=== PATIENT | male | born 1975 | race Caucasian/White ===

== ENCOUNTER 2018-05-09 07:59 | Emergency (ER) | payer SELFPAY ==
[2018-05-09 08:00] VITALS: BP 163/99; PULSE 119; RESP 20; TEMP 36.7; O2SAT 97; BMI 34.3
--- NOTE | 2018-05-09 08:12 | RAD_ITS ---
STUDY: X-RAY CHEST REASON FOR EXAM: Male, 43 years old. Wheezing, cough and shortness of breath. TECHNIQUE: PA and lateral views of the chest. COMPARISON: Comparison is made with prior study dated February 14, 2010. FINDINGS: Stable minimal increased linear markings in the lingular segment of the left upper lobe suggestive of scarring. There is no demonstrated pleural abnormality. Normal size heart. Normal mediastinum and han. Normal visualized pulmonary arteries. Normal visualized aortic arch and descending thoracic aorta. There are degenerative changes of the visualized thoracic spine. Normal visualized ribs, clavicles, and shoulders. There is no demonstrated abnormality of the visualized soft tissue structures of the upper abdomen. RAD/Chest PA and Lateral IMPRESSION: Minimal increased linear markings in the lingular segment of the left upper lobe suggestive of scarring. This is unchanged. Electronically Signed: Raj Pappas MD at 8:57 EST Tel [phone], Service support ,
[2018-05-09] MEDS: predniSONE 20 MG Tablet 40 MG PO (08:17)
[2018-05-09 08:19] VITALS: PULSE 95; RESP 18
[2018-05-09] MEDS: Ipratropium/Albuterol Sulfate 3 ML AMPUL.NEB INHALATION (08:19)
--- NOTE | 2018-05-09 08:19 | ED.VISSUMM ---
- ER Visit Summary Date of Service: 05/09/18 Chief Complaint: [Cough and shortness of breath] History of Present Illness: The patient is a 43 M [presents the emergency department complaint of cough for about a week. Patient denies any fevers. Cough is mostly nonproductive. Patient is tried gmuh-rei-xowmlqd remedies without any success. Patient continues to wheeze and feel short of breath. Complains of some burning skin sensation to the left anterior chest. Complains of chest discomfort with cough. Patient is a smoker. 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 Cranial nerves II through XII grossly intact. TMs clear. Mucous membranes moist. No adenopathy. Cardiovascular-regular rate and rhythm without murmur or ectopy Lungs-good aeration bilaterally. Patient has expiratory wheezes bilaterally. Mild tachypnea. No accessory muscle use or retractions. Mild tenderness palpation over left anterior chest wall. Abdomen-normoactive bowel sounds, soft, nontender, no rebound or rigidity, no peritoneal signs. Extremities-intact ?4, normal range of motion, normal pulses, atraumatic] Test Results: [Chest x-ray showed mild scarring in the left upper lobe which seems to be chronic.] Emergency Department Course and Treatment: [Patient was given a DuoNeb aerosol and dose of prednisone in the emergency department. Patient was given a dose of doxycycline and dispensed an albuterol MDI.] Treatment Plan: [Patient will be started on doxycycline, prednisone, and albuterol. Advised to follow-up with primary care physician public works commissioner for no doc within the next 5-7 days. Patient advised to return if increasing shortness of breath or condition should worsen anyway.] Disposition: [Discharged home in stable condition] Impression: [Asthmatic bronchitis] This note was generated with [employer] dictation software. It may contain incorrect words, spelling, and punctuation that were not noted in review of the chart prior to signing ED Disposition - Plan for ED Patient: Chief Complaint: Shortness of Breath Referrals: Jerry Dill,Nelly Weiner [NON-STAFF] -
--- NOTE | 2018-05-09 09:07 | ED.DEP ---
ED Disposition - Plan for ED Patient: Chief Complaint: Shortness of Breath Instructions: ED Bronchitis Asthmatic Prescriptions: Doxycycline 100 mg PO BID #20 cap Prednisone [Deltasone] 20 mg PO BID #10 tab Referrals: Free Nelly Dill [NON-STAFF] - 5-7 Days
[2018-05-09] MEDS: Doxycycline 100 MG CAPSULE PO (09:23)
--- OUTSIDE RECORDS SUMMARY | 2018-07-11 04:12 | XMS RPT_ITS ---
:1975 Author Organization [facility] Care Team Providers Name Role Phone Cholo Dial Attending Unavailable Primay Care Physicia, No Primary Care Unavailable Primay Care Physicia, No Primary Care Unavailable Danny Willis Attending Unavailable PROBLEMS PROBLEMS DATE TYPE CONDITION / CODE ATTENDING STATUS SOURCE 05/14/2018 Unknown T14.8XXA - Other Daniellaundsiria, Active Lorenza injury of [facility] unspecified body Hospital region, initial Repository encounter / T14.8XXA(ICD-10) PROCEDURES PROCEDURES No Procedure Records FoundRESULTS RESULTS EMERGENCY DEPARTMENT Observed: 05/14/2018 Status: F Source: [place] SUMMARY 6:54 AM [facility] REPOSITORY [facility] Medical Records Department [address] [place] [address] [place] [address] Emergency Department Summary 05/14/18 0531 MR#: [id number] Acct: [id number] Name: ANASTASIA MARTINEZ Rep #: [id number] : 1975 43 From: Danny Willis MD PCP: Care Physician, No Primary Status: DEP ER - ER Visit Summary Date of Service: 05/14/18 Chief Complaint: [] Patient said yesterday he coughed really hard and injured his left ribs. He is having pain with coughing and deep breaths in his left rib area. No significant shortness of breath. Was diagnosed with an asthmatic bronchitis which is getting better. He was seen in the emergency department with a normal chest x- ray at that time. He is on doxycycline, albuterol, prednisone. History of Present Illness: The patient is a 43 M [] Physical Examination: [] Vital signs reviewed General: Well-nourished well-developed Head: Normocephalic atraumatic Eyes: Pupils equal round and reactive to light extraocular movements intact ENT: TMs clear no hemotympanum no trauma Neck: Nontender full range of motion Cardiovascular: Regular rate rhythm no murmurs normal S1-S2 Respiratory: No distress clear to auscultation bilaterally chest nontender Abdomen: Soft nontender nondistended normal bowel sounds no masses Back: Nontender no CVA tenderness Extremities: Nontender active range of motion 4 extremities no trauma Skin: Normal color no trauma Neuro alert oriented cranial nerves II through XII intact normal strength sensation reflexes Test Results: [] Emergency Department Course and Treatment: [] This time I think the patient has a partial intercostal muscle strain versus tear. Given a shot of morphine. Will be given a short course of hydrocortisone for home. I do not think he needs a repeat chest x-ray. I do not think he has a pneumothorax. Treatment Plan: [] Disposition: [] Impression: [] Left intercostal muscle injury This note was generated with [employer] dictation software. It may contain incorrect words, spelling, and punctuation that were not noted in review of the chart prior to signing ED Disposition - Plan for ED Patient: Chief Complaint: Other, Pain/Inj Referrals: Care Physician,No Primary [Primary Care Provider] - What to do if you have Problems For any increased pain, shortness of breath, bleeding, nausea or vomiting, chest pain, or any unexpected problems, contact your Primary Care Provider. Call [facility] ([phone]) or report to the closest Emergency Room. Call 911 if necessary. 05/14/18 0654 <Electronically signed by Danny Willis MD> Date Danny Willis MD Cosigner Signature (If Indicated): Date CC: No Primary Care Physician DISCHARGE INSTRUCTION Observed: 05/14/2018 Status: F Source: [place] 6:54 AM [facility] HOSPITAL REPOSITORY [facility] Medical Records Department [address] [place] [address] Discharge Instruction 05/14/18 0532 MR#: [id number] Acct: [id number] Name: ANASTASIA MARTINEZ Marianela Rep #: [id number] : 1975 43 From: Danny Willis MD PCP: Care Physician, No Primary Status: DEP ER ED Disposition - Plan for ED Patient: Disposition: Home or Assisted Living Chief Complaint: Other, Pain/Inj Instructions: ED Strain Chest Wall Prescriptions: Hydrocodone Bitart/Apap 5-325 [[place] 5MG-325MG] 1 - 2 tab PO Q6H PRN PRN 3 Days #10 tab PRN Reason: Pain Referrals: Care Physician,No Primary [Primary Care Provider] - Nura Pritchett MD [STAFF PHYSICIAN] - What to do if you have Problems For any increased pain, shortness of breath, bleeding, nausea or vomiting, chest pain, or any unexpected problems, contact your Primary Care Provider. Call [facility] ([phone]) or report to the closest Emergency Room. Call 911 if necessary. 05/14/18 0654 <Electronically signed by Danny Willis MD> Date Danny Willis MD Cosigner Signature (If Indicated): Date CC: No Primary Care Physician EMERGENCY DEPARTMENT Observed: 05/10/2018 Status: F Source: [place] SUMMARY 4:12 PM [facility] REPOSITORY [facility] Medical Records Department [address] [place] [address] Emergency Department Summary 05/09/18 0819 MR#: [id number] Acct: [id number] Name: ANASTASIA MARTINEZ Rep #: [id number] : 1975 43 From: Cholo Dial PCP: Care Physician, No Primary Status: DEP ER - ER Visit Summary Date of Service: 05/09/18 Chief Complaint: [Cough and shortness of breath] History of Present Illness: The patient is a 43 M [presents the emergency department complaint of cough for about a week. Patient denies any fevers. Cough is mostly nonproductive. Patient is tried ydcz-qcd-ohhszxg remedies without any success. Patient continues to wheeze and feel short of breath. Complains of some burning skin sensation to the left anterior chest. Complains of chest discomfort with cough. Patient is a smoker. 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 Cranial nerves II through XII grossly intact. TMs clear. Mucous membranes moist. No adenopathy. Cardiovascular-regular rate and rhythm without murmur or ectopy Lungs-good aeration bilaterally. Patient has expiratory wheezes bilaterally. Mild tachypnea. No accessory muscle use or retractions. Mild tenderness palpation over left anterior chest wall. Abdomen-normoactive bowel sounds, soft, nontender, no rebound or rigidity, no peritoneal signs. Extremities-intact 4, normal range of motion, normal pulses, atraumatic] Test Results: [Chest x-ray showed mild scarring in the left upper lobe which seems to be chronic.] Emergency Department Course and Treatment: [Patient was given a DuoNeb aerosol and dose of prednisone in the emergency department. Patient was given a dose of doxycycline and dispensed an albuterol MDI.] Treatment Plan: [Patient will be started on doxycycline, prednisone, and albuterol. Advised to follow-up with primary care physician field ironworker for no doc within the next 5-7 days. Patient advised to return if increasing shortness of breath or condition should worsen anyway.] Disposition: [Discharged home in stable condition] Impression: [Asthmatic bronchitis] This note was generated with [employer] dictation software. It may contain incorrect words, spelling, and punctuation that were not noted in review of the chart prior to signing ED Disposition - Plan for ED Patient: Chief Complaint: Shortness of Breath Referrals: Jerry Dill,Nelly Weiner [NON-STAFF] - What to do if you have Problems For any increased pain, shortness of breath, bleeding, nausea or vomiting, chest pain, or any unexpected problems, contact your Primary Care Provider. Call [facility] ([phone]) or report to the closest Emergency Room. Call 911 if necessary. 05/10/18 1612 <Electronically signed by Cholo Dial DO> Date Cholo Dial DO Cosigner Signature (If Indicated): Date CC: No Primary Care Physician DISCHARGE INSTRUCTION Observed: 05/09/2018 Status: F Source: [place] 9:09 AM [facility] REPOSIT[facility] Medical Records Department [address] [facility] [place] [address] Discharge Instruction 05/09/18906 MR#: [id number] Acct: [id number] Name: ANASTASIA MARTINEZ Rep #: [id number] : 1975 43 From: Cholo Dial DO PCP: Care Physician, No Primary Status: REG ER ED Disposition - Plan for ED Patient: Chief Complaint: Shortness of Breath Instructions: ED Bronchitis Asthmatic Prescriptions: Doxycycline 100 mg PO BID #20 cap Prednisone [Deltasone] 20 mg PO BID #10 tab Referrals: Nelly Cuello [NON-STAFF] - 5-7 Days What to do if you have Problems For any increased pain, shortness of breath, bleeding, nausea or vomiting, chest pain, or any unexpected problems, contact your Primary Care Provider. Call [facility] ([phone]) or report to the closest Emergency Room. Call 911 if necessary. 05/09/18 0909 <Electronically signed by Cholo Dial DO> Date Cholo Dial DO Cosigner Signature (If Indicated): Date CC: No Primary Care Physician CHEST PA AND LATERAL Observed: 05/09/2018 Status: F Source: [place] 8:13 AM [facility] REPOSIT[facility] Imaging Services [address] [place] [address] Chest PA and Lateral MR#: [id number] Acct: [id number] Name: ANASTASIA MARTINEZ Rep #: [id number] : 1975 M 43 From: Raj Pappas MD PCP: Care Physician, No Primary Status: REG ER Study: Chest PA and Lateral Date of Exam: 05/09/18 Exam# [id number] Ordering Dr: Cholo Dial DO STUDY: X-RAY CHEST REASON FOR EXAM: Male, 43 years old. Wheezing, cough and shortness of breath. TECHNIQUE: PA and lateral views of the chest. COMPARISON: Comparison is made with prior study dated February 14, 2010. FINDINGS: Stable minimal increased linear markings in the lingular segment of the left upper lobe suggestive of scarring. There is no demonstrated pleural abnormality. Normal size heart. Normal mediastinum and han. Normal visualized pulmonary arteries. Normal visualized aortic arch and descending thoracic aorta. There are degenerative changes of the visualized thoracic spine. Normal visualized ribs, clavicles, and shoulders. There is no demonstrated abnormality of the visualized soft tissue structures of the upper abdomen. RAD/Chest PA and Lateral IMPRESSION: Minimal increased linear markings in the lingular segment of the left upper lobe suggestive of scarring. This is unchanged. Electronically Signed: Raj Pappas MD at 8:57 EST Tel [phone], Service support , CC: No Primary Care Physician; Cholo Dial DO Telecommunications Specialist: Signed ALLERGIES ALLERGIES DATE TYPE / CODE NAME / CODE REACTION SEVERITY SOURCE 10/23/2015 Drug No Known Unknown [facility] Allergy/4160 Allergies/F00 Hospital 10232(SNOMED [id number](RXNOR Repository CT) M) ENCOUNTERS ENCOUNTERS ADMIT/DISCHARGE ACCOUNT ADMITTING ENCOUNTER LOCATION SOURCE NUMBER CLASS 05/14/2018/ [id number] Emergency [address] ing:ED Repository 05/09/2018/ [id number] Emergency [address] ing:ED Repository PAYERS PAYERS ENCOUNTER GUARANTOR PAYER SUBSCRIBER SOURCE 05/14/2018 ANASTASIA Bear Primary NOT GIVENUNK Lorenza [id number] [place] Insurance:SELF PAY [address] Number: Effective Repository [id number]: (330) Date:2018-05-14 [phone] () 05/09/2018 ANASTASIA Marianela Primary NOT GIVENUNK Lorenza [id number] [place] Insurance:SELF PAY [address] Number: Effective Repository [id number]: [phone] Date:2018-05-09 [phone] ()
== END 2018-05-09 09:24 | disposition home or self-care (01) ==
LOC: ED 08:41
PROVIDERS: Emergency Provider Emergency Medicine
DX: J45.909 Unspecified asthma, uncomplicated (principal); I10 Essential (primary) hypertension; Z72.0 Tobacco use
CPT/HCPCS: 71046; 94640; 99283

== ENCOUNTER 2018-05-14 04:59 | Emergency (ER) | payer SELFPAY ==
[2018-05-14 04:59] VITALS: BP 154/106; PULSE 85; RESP 16; TEMP 36.5; O2SAT 96; BMI 35.2
--- NOTE | 2018-05-14 05:32 | ED.DCSUM_ITS ---
- ER Visit Summary Date of Service: 05/14/18 Chief Complaint: [] Patient said yesterday he coughed really hard and injured his left ribs. He is having pain with coughing and deep breaths in his left rib area. No significant shortness of breath. Was diagnosed with an asthmatic bronchitis which is getting better. He was seen in the emergency department with a normal chest x-ray at that time. He is on doxycycline, albuterol, prednisone. History of Present Illness: The patient is a 43 M [] Physical Examination: [] Vital signs reviewed General: Well-nourished well-developed Head: Normocephalic atraumatic Eyes: Pupils equal round and reactive to light extraocular movements intact ENT: TMs clear no hemotympanum no trauma Neck: Nontender full range of motion Cardiovascular: Regular rate rhythm no murmurs normal S1-S2 Respiratory: No distress clear to auscultation bilaterally chest nontender Abdomen: Soft nontender nondistended normal bowel sounds no masses Back: Nontender no CVA tenderness Extremities: Nontender active range of motion ?4 extremities no trauma Skin: Normal color no trauma Neuro alert oriented cranial nerves II through XII intact normal strength sensation reflexes Test Results: [] Emergency Department Course and Treatment: [] This time I think the patient has a partial intercostal muscle strain versus tear. Given a shot of morphine. Will be given a short course of hydrocortisone for home. I do not think he needs a repeat chest x-ray. I do not think he has a pneumothorax. Treatment Plan: [] Disposition: [] Impression: [] Left intercostal muscle injury This note was generated with [employer] dictation software. It may contain incorrect words, spelling, and punctuation that were not noted in review of the chart pr ior to signing ED Disposition - Plan for ED Patient: Chief Complaint: Other, Pain/Inj Referrals: Care Physician,No Primary [Primary Care Provider] -
--- NOTE | 2018-05-14 05:33 | DCINST.ED_ITS ---
ED Disposition - Plan for ED Patient: Disposition: Home or Assisted Living Chief Complaint: Other, Pain/Inj Instructions: ED Strain Chest Wall Prescriptions: Hydrocodone Bitart/Apap 5-325 [[place] 5MG-325MG] 1 - 2 tab PO Q6H PRN PRN 3 Days #10 tab PRN Reason: Pain Referrals: Care Physician,No Primary [Primary Care Provider] - Nura Pritchett MD [STAFF PHYSICIAN] -
[2018-05-14] MEDS: Morphine 4 MG/ML Syringe IM (05:38)
[2018-05-14 05:54] VITALS: BP 152/97; PULSE 76; RESP 15
== END 2018-05-14 05:55 | disposition home or self-care (01) ==
PROVIDERS: Emergency Provider Emergency Medicine
DX: S29.091A Other injury of muscle and tendon of front wall of thorax, initial encounter (principal); X50.3XXA Overexertion from repetitive movements, initial encounter; Y93.9 Activity, unspecified; Y92.89 Other specified places as the place of occurrence of the external cause; Y99.9 Unspecified external cause status; Z72.0 Tobacco use; E66.9 Obesity, unspecified
CPT/HCPCS: 96372; 99282

== ENCOUNTER 2018-07-16 10:10 | Observation (INO) | payer SELFPAY ==
[2018-07-16] VITALS (8 sets, daily range): BP systolic 123–151; BP diastolic 81–90; PULSE 65–105; RESP 14–18; TEMP 37.2–37.6; O2SAT 95–99; BMI 29.8; BMI 31.6
--- NOTE | 2018-07-16 10:30 | ED.DCSUM_ITS ---
- ER Visit Summary Date of Service: 07/16/18 Chief Complaint: Nausea, vomiting, and abdominal pain History of Present Illness: The patient is a 43 M who presents with nausea, vomiting, and abdominal pain that is been constant for the past 5 days. Patient states he has been unable to keep anything down for the past 5 days. Patient states he is beyond dehydrated. Patient states he is vomited some stomach contents but his intermittent streaks of blood occasionally. Patient denies any melena or hematochezia. Patient states the pain is over the left upper quadrant. Patient denies any radiation of the pain. Patient describes the pain is cramping. Patient denies any urinary complaints. Patient states he has a history of spastic colitis. Patient states that he he had the stomach flu recently which triggered his spastic colitis. Physical Examination: Vital signs are stable except for slight tachycardia of 105. Patient is afebrile. Patient is in no acute distress. Oral mucosa is pink and moist. Neck is supple. Trachea is midline. There is no JVD noted. Heart was regular rate and rhythm. Lungs are clear and equal bilaterally. Abdomen is soft. Bowel sounds are normal. There is some left upper quadrant tenderness. There is no rebound or guarding noted. Cranial nerves II through XII are intact. There are no focal motor or sensory deficits noted. Test Results: EKG showed normal sinus rhythm with a rate of 75. There are no acute ST or T wave changes. QTc was prolonged at 544 other than the prolonged QTC there are no acute changes compared to previous EKG dated 07/05/2015. CBC showed hemoglobin of 18.2. Basic metabolic profile showed a sodium of 122, potassium 2.2, and chloride of 71. Emergency Department Course and Treatment: Patient was given IV fluids and Zofran here. Patient was given a dose of IV potassium here as well as oral potassium. Patient was feeling better on reevaluation. Case was discussed with Dr. Cardenas. He will admit the patient for observation to telemetry. Patient understood and was agreeable with the plan. All questions were answered. Disposition: Admit for observation Impression: 1. Hypokalemia 2. Dehydration 3. Hyponatremia This note was generated with [employer] software. It may contain incorrect words, spelling, and punctuation that were not noted in review of the chart prior to signing ED Disposition - Plan for ED Patient: Disposition: Acute [facility] Diagnosis: Dehydration, Hypokalemia, Hyponatremia Referrals: Care Physician,No Primary [Primary Care Provider] -
[2018-07-16] MEDS: Ondansetron 4 MG/2 ML Vial IV ×2 (10:51→15:41)
[2018-07-16] MEDS: 0.9% Normal Saline 1,000 ML 1000 ML IV (10:51)
[2018-07-16 11:02] LABS: Absolute Lymphocyte Count 1.92 X10^3/ul (0.83-4.51); Absolute Neutrophil Count 11.5 X10^3/uL (2.0-7.7); Basophil# 0.02 X10^3/uL; Basophil% 0.1 % (0-1); Eosinophil# 0.02 X10^3/uL; Eosinophils% 0.1 % (0-5); Hematocrit 51.5 % (40-54); Lymphocyte # 1.92 X10^3/ul (4.0); Lymphocyte % 12.3 % (19-41); Mean Corp Hgb Conc 35.3 g/gl (32-36); Mean Corpuscular Volume 87.6 fL (80-94); Mean Platelet Vol. 9.5 fl (6.2-12.0); Monocyte# 2.01 X10^3/uL; Monocyte% 12.9 % (0-10); Neutrophil # 11.54 X10^3/uL (2.7-7.7); Neutrophil % 74.3 % (47-70); Platelet Count 242 K/mm3 (150-450); RBC Distribution Width SD 38.2 fl (35.1-43.9); Red Blood Count 5.88 M/mm3 (4.6-6.2); White Blood Count 15.6 K/mm3 (4.4-11.0)
[2018-07-16 11:04] LABS: Differential Indicated SCAN CRITERIA MET; Hemoglobin 18.2 g/dl (13.0-16.5); POSITIVE COUNT NO; POSITIVE DIFFERENTIAL YES; POSITIVE MORPHOLOGY NO
[2018-07-16 11:27] LABS: AST(SGOT) 21 U/L (15-37); Alanine Aminotransfer ALT/SGPT 27 U/L (16-61); Albumin, Serum 4.1 g/dL (3.2-5.0); Alkaline Phosphatase 96 U/L (45-117); Anion Gap 13 (5-15); BUN 35 mg/dL (7-18); BUN/Creat Ratio 27.3 RATIO (10-20); Calcium,Total 8.9 mg/dL (8.5-10.1); Chloride 71 mmol/L (98-107); Creatinine, Serum 1.28 mg/dL (0.70-1.30); EST Glomerular Filtration Rate 65 mL/min (>60); Est Glom Filt Rate - Afr Amer 79 mL/min (>60); Estimated Creatinine Clearance 82.52 ml/min; Glucose 208 mg/dL (74-106); Lipase 140 U/L (73-393); Potassium 2.2 mmol/L (3.5-5.1); Protein, Total 8.1 g/dL (6.4-8.2); Sodium Level 122 mmol/L (136-145)
--- NOTE | 2018-07-16 11:35 | ED.RN ---
hgb 18.2 pot 2.2 and chloride [address] mcnally aware
[2018-07-16] MEDS: Potassium Chloride 10mEq/100mL 10 MEQ/100 ML IV.SOLN. 100 MEQ IV BOLUS ×2 (11:41→20:24)
--- NOTE | 2018-07-16 12:40 | EKG12_ITS ---
Test Reason : CP Blood Pressure : / mmHG Vent. Rate : 075 BPM Atrial Rate : 075 BPM P-R Int : 140 ms QRS Dur : 112 ms QT Int : 488 ms P-R-T Axes : 068 028 065 degrees QTc Int : 544 ms Normal sinus rhythm Prolonged QT Abnormal ECG Confirmed by ISABELLA BARRIOS, SHARIF ([id number]), video news editor NANCIE MUNOZ ([id number]) on 07/17/2018 1:35:23 PM Referred By: Gold Cardenas Confirmed By:SHARIF MASON MD
--- NOTE | 2018-07-16 13:47 | PCM.HP.STD ---
Problem List (1) Intractable nausea and vomiting Status: Acute Qualifiers: Vomiting type: unspecified Qualified Code(s): R11.2 - Nausea with vomiting, unspecified (2) Hypokalemia Status: Acute (3) Hyponatremia Status: Acute History of Present Illness Date of Admission: 07/16/18 Chief Complaint: nausea/vomiting The patient is a 43 year old M presents with a 5-6-day history of intractable nausea and vomiting. Patient states that he is only been able to just have some drops of water into his mouth just to keep his mouth wet but anything he does drink he soon regurgitates. Patient has had similar events in the past and has been hospitalized here for such but he states that this episode is not quite severe as those prior episodes. Patient states that it is not severe because he still making urine right now where as previously, he was not making any urine. So he presented to the emergency room and had a sodium 122 and a potassium of 2.2. He received Zofran, 40 medical events of K Dur, 10 mg of potassium chloride IV and your of IV fluids. Patient states that he is having some abdominal pain that is epigastric to left-sided. [] Past Medical History Past Medical History (Chronic Problems): Chronic Problems Tobacco use disorder (Chronic) Irritable colon (Chronic) History of sciatica (Chronic) History of back pain (Chronic) Benign essential HTN (Chronic) Allergies No Known Allergies Allergy (Verified 07/16/18 10:10) Home Medications: Ambulatory Orders Medication Instructions Recorded NK 07/16/18 Surgical History: appendectomy, tonsillectomy Psychiatric History: No pertinent psych hx Smoking Status: Heavy Smoker (>10/day) Tobacco Use: Cigarettes Alcohol: None Drugs: None - *Family History Maternal Family History: Family History (Last Updated 07/16/18 @ 13:50 by Gold Cardenas DO) Aunt Crohns disease History Items: No pertinent history Paternal Family History: Family History (Last Updated 07/16/18 @ 13:50 by Gold Cardenas DO) Aunt Crohns disease History Items: No pertinent history Review of Systems Constitutional: Reports: Chills, Malaise, Weakness. Denies: Fever Eyes: Reports: Blurred vision. Denies: Double vision HEENT: Denies: Head Aches, Sinus Congestion, Sinus Drainage Cardiovascular: Denies: Chest Pain, Palpitations Respiratory: Denies: Cough, Shortness of breath at rest, Sputum production Gastrointestinal: Reports: Abdominal Pain, Nausea, Vomiting. Denies: Diarrhea Genitourinary: Reports: - - Good urinary output. Denies: Dysuria Musculoskeletal: Reports: Arm Pain. Denies: Joint Tenderness Skin: Denies: Dryness, Jaundice Neurological: Reports: Balance problems, Blurred vision, Change in Speech. Denies: Double vision Psychiatric: Denies: Anxiety, Depression Comment: A 10 point review of systems were negative except as mentioned in the history of present illness and the other review of systems. VTE Information - Inpt Only VTE Present on Admission: No VTE Mechan Device Prophylaxis: None VTE Pharm Prophylaxis ordered?: Yes Patient Problems: Active and Suspected Problems Dehydration (Acute) Hypokalemia (Acute) Hyponatremia (Acute) Intractable nausea and vomiting (Acute) - Physical Exam General: Alert, Cooperative, - - Uncomfortable, appears older than stated age. HEENT: Atraumatic, Normocephalic, - - No scleral icterus Oral: Moist Mucosa, No Gingival or Mucosal Lesions/ Ulcerations Neck: No Nodes, Thyroid Normal Size and Texture Lungs: Clear to auscultation, Normal air movement, No rhonchi, No wheeze Cardiovascular: Regular rate, Regular Rhythm, Normal S1, Normal S2 Abdomen: Bowel Sounds Present, Soft, Non-Distended, - - Slight epigastric tenderness Extremities: No edema, No Calf Tenderness Skin: No rashes, No breakdown, - - Acne pockmarks on his face Musculoskeletal: No Tenderness to Palpation of Joints or Extremities, No Muscle Wasting Psych/Mental Status: Normal Affect, Anxious Vital Signs Temp Pulse Resp BP Pulse Ox 37.6 C H 74 18 136/83 H 96 07/16/18 10:11 07/16/18 13:09 07/16/18 13:09 07/16/18 13:09 07/16/18 10:11 Oxygen Delivery Method Room Air Weight: 99.79 kg Body Mass Index (BMI) 29.8 Laboratory Tests Past 24 Hrs 07/16/18 07/16/18 10:50 10:50 WBC 15.6 H RBC 5.88 Hgb 18.2 H* Hct 51.5 MCV 87.6 MCH 31.0 MCHC 35.3 RDW 12.0 RDW Differential 38.2 Plt Count 242 MPV 9.5 Immature Gran % (Auto) 0.300 Neut % (Auto) 74.3 H Lymph % (Auto) 12.3 L [place] % (Auto) 12.9 H Eos % (Auto) 0.1 Baso % (Auto) 0.1 Absolute Neuts (auto) 11.5 H Absolute Lymphs (auto) 1.92 Total Counted Not Reportable Differential Comment COMMENT Diff Path Review May foll Sodium 122 L Potassium 2.2 L* Chloride 71 L* Carbon Dioxide 38.0 H Anion Gap 13 BUN 35 H Creatinine 1.28 Estim Creat Clear Calc 82.52 Est GFR (MDRD) Af Amer 79 Est GFR (MDRD) Non-Af 65 BUN/Creatinine Ratio 27.3 H Glucose 208 H Calcium 8.9 Total Bilirubin 1.80 H AST 21 ALT 27 Alkaline Phosphatase 96 Total Protein 8.1 Albumin 4.1 Globulin 4.0 Albumin/Globulin Ratio 1.0 Lipase 140 Assessment/Plan All Active Problems Dehydration (Acute) Hypokalemia (Acute) Hyponatremia (Acute) Intractable nausea and vomiting (Acute) 1. Intractable nausea and vomiting Seems prolonged to be just related with gastroenteritis, but certainly could be so. Does have relative with Crohn's disease. Patient reports history of IBD and celiac sprue. The symptoms do not seem consistent with either of those diagnoses to be going on this long. He denies any marijuana use that this is associated with hyperemesis due to cannabinoids, unless he was not forthcoming in regards to smoking marijuana. Supportive management Put the patient on Protonix as well as Zofran Check a CT of the abdomen and pelvis to rule out any other acute pathology such as inflammatory bowel disease. 2. Hyponatremia Likely due to hypovolemia given the intractable nausea and vomiting No indication for hypertonic saline at this time. Patient will receive normal saline at 250 cc/h for now. Recheck BMP later on today 3. Hypokalemia Attributable to the intractable nausea and vomiting Was replaced in the emergency room, will give patient additional 30 mEq IV on the floor Check magnesium level Recheck later today 4. DVT prophylaxis with Lovenox Code Visit OBSV E&M: [id number] Initial observation care L3
--- NOTE | 2018-07-16 13:52 | HP.PCM_ITS ---
Problem List (1) Intractable nausea and vomiting Status: Acute Qualifiers: Vomiting type: unspecified Qualified Code(s): R11.2 - Nausea with vomiting, unspecified (2) Hypokalemia Status: Acute (3) Hyponatremia Status: Acute History of Present Illness Date of Admission: 07/16/18 Chief Complaint: nausea/vomiting The patient is a 43 year old M presents with a 5-6-day history of intractable nausea and vomiting. Patient states that he is only been able to just have some drops of water into his mouth just to keep his mouth wet but anything he does drink he soon regurgitates. Patient has had similar events in the past and has been hospitalized here for such but he states that this episode is not quite severe as those prior episodes. Patient states that it is not severe because he still making urine right now where as previously, he was not making any urine. So he presented to the emergency room and had a sodium 122 and a potassium of 2.2. He received Zofran, 40 medical events of K Dur, 10 mg of potassium chloride IV and your of IV fluids. Patient states that he is having some abdominal pain that is epigastric to left-sided. [] Past Medical History Past Medical History (Chronic Problems): Chronic Problems Tobacco use disorder (Chronic) Irritable colon (Chronic) History of sciatica (Chronic) History of back pain (Chronic) Benign essential HTN (Chronic) Allergies No Known Allergies Allergy (Verified 07/16/18 10:10) Home Medications: Ambulatory Orders Medication Instructions Recorded NK 07/16/18 Surgical History: appendectomy, tonsillectomy Psychiatric History: No pertinent psych hx Smoking Status: Heavy Smoker (>10/day) Tobacco Use: Cigarettes Alcohol: None Drugs: None - *Family History Maternal Family History: Family History (Last Updated 07/16/18 @ 13:50 by Gold Cardenas DO) Aunt Crohns disease History Items: No pertinent history Paternal Family History: Family History (Last Updated 07/16/18 @ 13:50 by Gold Cardenas DO) Aunt Crohns disease History Items: No pertinent history Review of Systems Constitutional: Reports: Chills, Malaise, Weakness. Denies: Fever Eyes: Reports: Blurred vision. Denies: Double vision HEENT: Denies: Head Aches, Sinus Congestion, Sinus Drainage Cardiovascular: Denies: Chest Pain, Palpitations Respiratory: Denies: Cough, Shortness of breath at rest, Sputum production Gastrointestinal: Reports: Abdominal Pain, Nausea, Vomiting. Denies: Diarrhea Genitourinary: Reports: - - Good urinary output. Denies: Dysuria Musculoskeletal: Reports: Arm Pain. Denies: Joint Tenderness Skin: Denies: Dryness, Jaundice Neurological: Reports: Balance problems, Blurred vision, Change in Speech. Denies: Double vision Psychiatric: Denies: Anxiety, Depression Comment: A 10 point review of systems were negative except as mentioned in the history of present illness and the other review of systems. VTE Information - Inpt Only VTE Present on Admission: No VTE Mechan Device Prophylaxis: None VTE Pharm Prophylaxis ordered?: Yes Patient Problems: Active and Suspected Problems Dehydration (Acute) Hypokalemia (Acute) Hyponatremia (Acute) Intractable nausea and vomiting (Acute) - Physical Exam General: Alert, Cooperative, - - Uncomfortable, appears older than stated age. HEENT: Atraumatic, Normocephalic, - - No scleral icterus Oral: Moist Mucosa, No Gingival or Mucosal Lesions/ Ulcerations Neck: No Nodes, Thyroid Normal Size and Texture Lungs: Clear to auscultation, Normal air movement, No rhonchi, No wheeze Cardiovascular: Regular rate, Regular Rhythm, Normal S1, Normal S2 Abdomen: Bowel Sounds Present, Soft, Non-Distended, - - Slight epigastric tenderness Extremities: No edema, No Calf Tenderness Skin: No rashes, No breakdown, - - Acne pockmarks on his face Musculoskeletal: No Tenderness to Palpation of Joints or Extremities, No Muscle Wasting Psych/Mental Status: Normal Affect, Anxious Vital Signs Temp Pulse Resp BP Pulse Ox 37.6 C H 74 18 136/83 H 96 07/16/18 10:11 07/16/18 13:09 07/16/18 13:09 07/16/18 13:09 07/16/18 10:11 Oxygen Delivery Method Room Air Weight: 99.79 kg Body Mass Index (BMI) 29.8 Laboratory Tests Past 24 Hrs 07/16/18 07/16/18 10:50 10:50 WBC 15.6 H RBC 5.88 Hgb 18.2 H* Hct 51.5 MCV 87.6 MCH 31.0 MCHC 35.3 RDW 12.0 RDW Differential 38.2 Plt Count 242 MPV 9.5 Immature Gran % (Auto) 0.300 Neut % (Auto) 74.3 H Lymph % (Auto) 12.3 L [place] % (Auto) 12.9 H Eos % (Auto) 0.1 Baso % (Auto) 0.1 Absolute Neuts (auto) 11.5 H Absolute Lymphs (auto) 1.92 Total Counted Not Reportable Differential Comment COMMENT Diff Path Review May foll Sodium 122 L Potassium 2.2 L* Chloride 71 L* Carbon Dioxide 38.0 H Anion Gap 13 BUN 35 H Creatinine 1.28 Estim Creat Clear Calc 82.52 Est GFR (MDRD) Af Amer 79 Est GFR (MDRD) Non-Af 65 BUN/Creatinine Ratio 27.3 H Glucose 208 H Calcium 8.9 Total Bilirubin 1.80 H AST 21 ALT 27 Alkaline Phosphatase 96 Total Protein 8.1 Albumin 4.1 Globulin 4.0 Albumin/Globulin Ratio 1.0 Lipase 140 Assessment/Plan All Active Problems Dehydration (Acute) Hypokalemia (Acute) Hyponatremia (Acute) Intractable nausea and vomiting (Acute) 1. Intractable nausea and vomiting * Seems prolonged to be just related with gastroenteritis, but certainly could be so. Does have relative with Crohn's disease. Patient reports history of IBD and celiac sprue. The symptoms do not seem consistent with either of those diagnoses to be going on this long. He denies any marijuana use that this is associated with hyperemesis due to cannabinoids, unless he was not forthcoming in regards to smoking marijuana. * Supportive management * Put the patient on Protonix as well as Zofran * Check a CT of the abdomen and pelvis to rule out any other acute pathology such as inflammatory bowel disease. 2. Hyponatremia * Likely due to hypovolemia given the intractable nausea and vomiting * No indication for hypertonic saline at this time. Patient will receive normal saline at 250 cc/h for now. * Recheck BMP later on today 3. Hypokalemia * Attributable to the intractable nausea and vomiting * Was replaced in the emergency room, will give patient additional 30 mEq IV on the floor * Check magnesium level * Recheck later today 4. DVT prophylaxis with Lovenox Code Visit OBSV E&M: [id number] Initial observation care L3
--- NOTE | 2018-07-16 15:10 | CT_ITS ---
STUDY: CT ABDOMEN AND PELVIS WITH CONTRAST REASON FOR EXAM: Male, 43 years old. Nausea, vomiting RADIATION DOSAGE (If Supplied By Facility): CTDIvol = ( 16.29 ) mGy, DLP = ( 1231.49 ) mGycm TECHNIQUE: Transaxial images were obtained from the dome of the diaphragm to the symphysis pubis without oral contrast. 80 IV/Oral Isovue 300 was administered. Sagittal and coronal images were reconstructed. Individualized dose optimization techniques were used for this CT. COMPARISON: July 05, 2015 FINDINGS: The visualized lung bases are unremarkable. The visualized portions of the heart are within normal limits. Normal liver. Normal gallbladder and extrahepatic biliary system. Normal spleen. Normal pancreas. Normal bilateral adrenal glands. Probable punctate nonobstructive stone in the right kidney. 2.2 cm cyst and adjacent 2 mm stones are noted in the left kidney. Normal visualized stomach. Normal small intestine. Normal colon. The appendix is not visualized. Normal abdominal aorta. Normal inferior vena cava. Normal retroperitoneum. Normal urinary bladder. Normal abdominal wall. Degenerative vertebral changes. Old compression of L1. Stable mild compression of T12 with depressed superior endplate. Minimal retrolisthesis at L5-S1. Posterior annular bulge at L4-5 impressing upon the thecal sac. CT/Abdomen/Pelvis WITH Contrast IMPRESSION: Nonobstructing stones in the kidneys. Left renal cyst. No bowel obstruction. Electronically Signed: Sergio Mckeon DO at 18:26 EDT Tel [phone], Service support ,
[2018-07-16] MEDS: 0.9% NaCl Peripheral Flush Adult/Peds IV ×3 (15:41→18:05)
[2018-07-16] MEDS: Morphine 2 MG/ML Syringe IV ×2 (15:41→19:51)
[2018-07-16 15:58] LABS: Magnesium 2.7 mg/dL (1.6-2.6)
[2018-07-16] MEDS: Potassium Chloride 10mEq/100mL 10 MEQ/100 ML IV.SOLN. 75 MEQ IV BOLUS (16:00)
[2018-07-16] MEDS: Enoxaparin 40 MG/0.4 ML Syringe SC (17:33)
[2018-07-16] MEDS: Potassium Chloride 10mEq/100mL 10 MEQ/100 ML IV.SOLN. 50 MEQ IV BOLUS (18:05)
[2018-07-16] MEDS: 0.9% Normal Saline 1,000 ML 150 ML IV (18:06)
[2018-07-16 18:26] LABS: Anion Gap 8 (5-15); BUN 29 mg/dL (7-18); BUN/Creat Ratio 25.9 RATIO (10-20); Calcium,Total 7.9 mg/dL (8.5-10.1); Chloride 82 mmol/L (98-107); Creatinine, Serum 1.12 mg/dL (0.70-1.30); EST Glomerular Filtration Rate 76 mL/min (>60); Est Glom Filt Rate - Afr Amer 92 mL/min (>60); Estimated Creatinine Clearance 94.31 ml/min; Glucose 139 mg/dL (74-106); Potassium 2.5 mmol/L (3.5-5.1); Sodium Level 126 mmol/L (136-145)
[2018-07-17] VITALS (10 sets, daily range): BP systolic 142–145; BP diastolic 74–89; PULSE 62–78; RESP 16–18; TEMP 36.6–36.8; O2SAT 95–98
[2018-07-17] MEDS: Morphine 2 MG/ML Syringe IV ×2 (00:06→04:33)
[2018-07-17] MEDS: Ondansetron 4 MG/2 ML Vial IV ×2 (00:06→14:22)
[2018-07-17] MEDS: 0.9% Normal Saline 1,000 ML 150 ML IV ×2 (00:14→06:53)
[2018-07-17 06:27] LABS: Absolute Lymphocyte Count 2.88 X10^3/ul (0.83-4.51); Absolute Neutrophil Count 9.1 X10^3/uL (2.0-7.7); Basophil# 0.03 X10^3/uL; Basophil% 0.2 % (0-1); Eosinophil# 0.15 X10^3/uL; Eosinophils% 1.1 % (0-5); Hematocrit 43.9 % (40-54); Hemoglobin 14.6 g/dl (13.0-16.5); Lymphocyte # 2.88 X10^3/ul (4.0); Lymphocyte % 21.2 % (19-41); Mean Corp Hgb Conc 33.3 g/gl (32-36); Mean Corpuscular Volume 90.3 fL (80-94); Mean Platelet Vol. 9.5 fl (6.2-12.0); Monocyte# 1.35 X10^3/uL; Monocyte% 9.9 % (0-10); Neutrophil # 9.12 X10^3/uL (2.7-7.7); Neutrophil % 67.2 % (47-70); Platelet Count 214 K/mm3 (150-450); RBC Distribution Width CV 12.3 % (11.6-14.6); RBC Distribution Width SD 40.2 fl (35.1-43.9); Red Blood Count 4.86 M/mm3 (4.6-6.2); White Blood Count 13.6 K/mm3 (4.4-11.0)
[2018-07-17 06:39] LABS: POSITIVE COUNT NO; POSITIVE DIFFERENTIAL NO; POSITIVE MORPHOLOGY NO
[2018-07-17 07:06] LABS: AST(SGOT) 32 U/L (15-37); Alanine Aminotransfer ALT/SGPT 29 U/L (16-61); Albumin, Serum 3.2 g/dL (3.2-5.0); Alkaline Phosphatase 73 U/L (45-117); Anion Gap 10 (5-15); BUN 24 mg/dL (7-18); BUN/Creat Ratio 22.4 RATIO (10-20); Calcium,Total 7.6 mg/dL (8.5-10.1); Chloride 87 mmol/L (98-107); Creatinine, Serum 1.07 mg/dL (0.70-1.30); EST Glomerular Filtration Rate 80 mL/min (>60); Est Glom Filt Rate - Afr Amer 97 mL/min (>60); Estimated Creatinine Clearance 98.71 ml/min; Globulin 3.1 g/dL (2.2-4.2); Glucose 154 mg/dL (74-106); Potassium 2.3 mmol/L (3.5-5.1); Protein, Total 6.3 g/dL (6.4-8.2); Sodium Level 132 mmol/L (136-145)
[2018-07-17] MEDS: Potassium Chloride 10mEq/100mL 10 MEQ/100 ML IV.SOLN. 100 MEQ IV BOLUS ×7 (08:06→23:58)
[2018-07-17] MEDS: Ensure Clear 120 ML Liquid PO ×4 (08:09→19:58)
[2018-07-17] MEDS: Enoxaparin 40 MG/0.4 ML Syringe SC (08:10)
[2018-07-17] MEDS: Ketorolac 15 MG/ML Vial IV ×2 (09:19→17:51)
[2018-07-17] MEDS: Potassium Chloride 40 MEQ in 0.9% Normal Saline 1,000 ML 150 MEQ IV (09:32)
[2018-07-17] MEDS: HYDROcodone Bitartrate/Apap 5/325 Tablet PO ×4 (10:15→20:09)
--- NOTE | 2018-07-17 10:38 | PCM.PN.HOSP ---
Patient Problems: Active and Suspected Problems Dehydration (Acute) Hypokalemia (Acute) Hyponatremia (Acute) Intractable nausea and vomiting (Acute) Subjective: Patient seen and examined. He was admitted with a complaint of intractable nausea, vomiting and diarrhea. He was found to have severe hypokalemia with potassium of 2.2 and was also found to be hyponatremic. He is being hydrated with IV fluids and potassium is been replaced. Patient seen and examined this morning. He has not had any nausea vomiting overnight and feels ready tolerated diet. He denies any palpitations or dizziness, chest pain or abdominal pain. Sodium is up to 132 today and potassium is only 2.3. Labs and vitals reviewed. Vitals/I&O's: Vital Signs Temp Pulse Resp BP Pulse Ox 98.3 F 78 18 143/89 H 98 07/17/18 08:13 07/17/18 09:26 07/17/18 08:13 07/17/18 08:13 07/17/18 08:13 Oxygen Delivery Method Room Air Weight: 232 lb 12.93 oz Body Mass Index (BMI) 31.6 Intake and Output for Last 24 Hours 07/15/18 07/16/18 07/17/18 23:59 23:59 23:59 Intake Total 823 / 823 2680 / 2680 Output Total 575 / 575 450 / 450 Balance 248 / 248 2230 / 2230 General: Alert, Oriented x3, Cooperative, No apparent distress HEENT: Atraumatic, PERRLA, EOMI, Normocephalic Oral: Dry Mucosa Neck: Supple, No JVD, Negative Carotid Bruits Lungs: Clear to auscultation, Normal air movement, No rhonchi, No wheeze, No rales Cardiovascular: Regular rate, Regular Rhythm, Normal S1, Normal S2, No murmurs Abdomen: Bowel Sounds Present, Soft, Non Tender, Non-Distended, No Hepato-splenomegaly Extremities: No clubbing, No cyanosis, No edema, Capillary Refill Less than 3 Seconds Skin: No rashes, No breakdown Musculoskeletal: No Tenderness to Palpation of Joints or Extremities Lymphatic: No Cervical, Supraclavicular, or Inguinal Adenopathy Neurological: Cranial nerves II-XII grossly intact Psych/Mental Status: Normal Affect, Appropriate, Alert and oriented to time, place, person, mood and affect Laboratory Results 07/16/18 10:50: WBC 15.6 H, RBC 5.88, Hgb 18.2 H*, Hct 51.5, MCV 87.6, MCH 31.0, MCHC 35.3, RDW 12.0, RDW Differential 38.2, Plt Count 242, MPV 9.5, Immature Gran % (Auto) 0.300, Neut % (Auto) 74.3 H, Lymph % (Auto) 12.3 L, [place] % (Auto) 12.9 H, Eos % (Auto) 0.1, Baso % (Auto) 0.1, Absolute Neuts (auto) 11.5 H, Absolute Lymphs (auto) 1.92, Total Counted Not Reportable, Differential Comment COMMENT, Diff Path Review August07/16/18 10:50: Sodium 122 L, Potassium 2.2 L*, Chloride 71 L*, Carbon Dioxide 38.0 H, Anion Gap 13, BUN 35 H, Creatinine 1.28, Estim Creat Clear Calc 82.52, Est GFR (MDRD) Af Amer 79, Est GFR (MDRD) Non-Af 65, BUN/Creatinine Ratio 27.3 H, Glucose 208 H, Calcium 8.9, Total Bilirubin 1.80 H, AST 21, ALT 27, Alkaline Phosphatase 96, Total Protein 8.1, Albumin 4.1, Globulin 4.0, Albumin/Globulin Ratio 1.0, Lipase 140 07/16/18 10:50: Magnesium 2.7 H 07/16/18 17:20: Sodium 126 L, Potassium 2.5 L*, Chloride 82 L, Carbon Dioxide 36.0 H, Anion Gap 8, BUN 29 H, Creatinine 1.12, Estim Creat Clear Calc 94.31, Est GFR (MDRD) Af Amer 92, Est GFR (MDRD) Non-Af 76, BUN/Creatinine Ratio 25.9 H, Glucose 139 H, Calcium 7.9 L 07/17/18 05:10: WBC 13.6 H, RBC 4.86, Hgb 14.6, Hct 43.9, MCV 90.3, MCH 30.0, MCHC 33.3, RDW 12.3, RDW Differential 40.2, Plt Count 214, MPV 9.5, Immature Gran % (Auto) 0.400, Neut % (Auto) 67.2, Lymph % (Auto) 21.2, [place] % (Auto) 9.9, Eos % (Auto) 1.1, Baso % (Auto) 0.2, Absolute Neuts (auto) 9.1 H, Absolute Lymphs (auto) 2.88, Total Counted Not Reportable 07/17/18 05:10: Sodium 132 L, Potassium 2.3 L*, Chloride 87 L, Carbon Dioxide 35.0 H, Anion Gap 10, BUN 24 H, Creatinine 1.07, Estim Creat Clear Calc 98.71, Est GFR (MDRD) Af Amer 97, Est GFR (MDRD) Non-Af 80, BUN/Creatinine Ratio 22.4 H, Glucose 154 H, Calcium 7.6 L, Total Bilirubin 1.50 H, AST 32, ALT 29, Alkaline Phosphatase 73, Total Protein 6.3 L, Albumin 3.2, Globulin 3.1, Albumin/Globulin Ratio 1.0 Current Medications Acetaminophen (Tylenol) 650 mg PO Q6H PRN PRN PRN Reason: Mild Pain (1-3)/Temp > 100.7 F Hydrocodone Bitart/Acetaminophen ([place] 5mg-325mg) 1 tablet PO Q4H PRN PRN PRN Reason: SEVERE PAIN (6-01/24) Last Admin: 07/17/18 10:15 Dose: 1 tablet Enoxaparin Sodium (Lovenox) 40 mg SC DAILY@1000 KIMI Last Admin: 07/17/18 08:10 Dose: 40 mg Pantoprazole Sodium 40 mg/ (Sodium Chloride) 110 mls @ 330 mls/hr IV Q24 [facility] Last Admin: 07/17/18 09:22 Dose: 330 mls/hr Potassium Chloride () 10 meq in 100 mls @ 100 mls/hr IV BOLUS Q1H KIMI Stop: 07/17/18 11:29 Last Admin: 07/17/18 09:22 Dose: 100 mls/hr Potassium Chloride 40 meq/ (Sodium Chloride) 1,020 mls @ 150 mls/hr IV .[id number] [facility] Last Admin: 07/17/18 09:32 Dose: 150 mls/hr Ketorolac Tromethamine (Toradol) 15 mg IV Q6H PRN PRN PRN Reason: PAIN Stop: 07/21/18 15:10 Last Admin: 07/17/18 09:19 Dose: 15 mg Magnesium Hydroxide (Milk Of Magnesia) 30 ml PO DAILY PRN PRN PRN Reason: Constipation Nutritional Formula (Lactose Free) (Ensure Clear) 120 ml PO TIDCM KIMI Last Admin: 07/17/18 08:09 Dose: 120 ml Ondansetron HCl (Zofran) 4 mg IV Q8H PRN PRN PRN Reason: NAUSEA Last Admin: 07/17/18 00:06 Dose: 4 mg Sodium Chloride () 5 - 15 ml IV UD PRN PRN Reason: SALINE FLUSH Last Admin: 07/16/18 18:05 Dose: 10 ml Medical Necessity - Tobacco Use Smoking Status: Heavy Smoker (>10/day) Tobacco Use: Cigarettes Assessment/Plan All Active Problems Dehydration (Acute) Hypokalemia (Acute) Hyponatremia (Acute) Intractable nausea and vomiting (Acute) 1. Intractable nausea and vomiting due to probable gastroenteritis States he has a history of colitis and has had such nausea and vomiting in the past but the last episode was about 3 years ago. Nausea and vomiting have improved and he is ready to try diet now. Currently being hydrated with IV fluid normal saline. Tolerated Jell-O this morning. Will advance diet as tolerated. IV Zofran as needed. CT of the abdomen showed no bowel obstruction and nonobstructing stones in the kidneys and a left renal cyst. 2. Acute hypotonic hypovolemic hyponatremia Sodium was 122 on admission with a low chloride as well which is likely due to dehydration from incessant nausea and vomiting. Sodium is up to 132 today with IV fluid ministration. We will cut down fluids top 100 cc/h. chloride up to 87, from 71 on admission 3. Hypokalemia: Potassium was 2.2 on admission and despite replacement is only 2.3 this morning. We will replace with IV potassium 40 mEq as well as 40 mEq of normal saline to give a total of 80 mEq of potassium. Will repeat potassium level. Magnesium level normal. 4. Metabolic alkalosis: Bicarb was 38 on admission and this is likely due to contraction alkalosis from vomiting. Bicarb down to 35 today. Will monitor with hydration 5. Leuko cytosis: Likely reactive. White cell count was 15.6 on admission and is now 13.6. No evidence of infection. Will monitor. DVT prophylaxis: Lovenox Code Visit OBSV E&M: [id number] Subsequent observation care L3
--- NOTE | 2018-07-17 10:42 | PN_ITS ---
Patient Problems: Active and Suspected Problems Dehydration (Acute) Hypokalemia (Acute) Hyponatremia (Acute) Intractable nausea and vomiting (Acute) Subjective: Patient seen and examined. He was admitted with a complaint of intractable nausea, vomiting and diarrhea. He was found to have severe hypokalemia with potassium of 2.2 and was also found to be hyponatremic. He is being hydrated with IV fluids and potassium is been replaced. Patient seen and examined this morning. He has not had any nausea vomiting overnight and feels ready tolerated diet. He denies any palpitations or dizziness, chest pain or abdominal pain. Sodium is up to 132 today and potassium is only 2.3. Labs and vitals reviewed. Vitals/I&O's: Vital Signs Temp Pulse Resp BP Pulse Ox 98.3 F 78 18 143/89 H 98 07/17/18 08:13 07/17/18 09:26 07/17/18 08:13 07/17/18 08:13 07/17/18 08:13 Oxygen Delivery Method Room Air Weight: 232 lb 12.93 oz Body Mass Index (BMI) 31.6 Intake and Output for Last 24 Hours 07/15/18 07/16/18 07/17/18 23:59 23:59 23:59 Intake Total 823 / 823 2680 / 2680 Output Total 575 / 575 450 / 450 Balance 248 / 248 2230 / 2230 General: Alert, Oriented x3, Cooperative, No apparent distress HEENT: Atraumatic, PERRLA, EOMI, Normocephalic Oral: Dry Mucosa Neck: Supple, No JVD, Negative Carotid Bruits Lungs: Clear to auscultation, Normal air movement, No rhonchi, No wheeze, No rales Cardiovascular: Regular rate, Regular Rhythm, Normal S1, Normal S2, No murmurs Abdomen: Bowel Sounds Present, Soft, Non Tender, Non-Distended, No Hepato- splenomegaly Extremities: No clubbing, No cyanosis, No edema, Capillary Refill Less than 3 Seconds Skin: No rashes, No breakdown Musculoskeletal: No Tenderness to Palpation of Joints or Extremities Lymphatic: No Cervical, Supraclavicular, or Inguinal Adenopathy Neurological: Cranial nerves II-XII grossly intact Psych/Mental Status: Normal Affect, Appropriate, Alert and oriented to time, place, person, mood and affect Laboratory Results 07/16/18 10:50: WBC 15.6 H, RBC 5.88, Hgb 18.2 H*, Hct 51.5, MCV 87.6, MCH 31.0, MCHC 35.3, RDW 12.0, RDW Differential 38.2, Plt Count 242, MPV 9.5, Immature Gran % (Auto) 0.300, Neut % (Auto) 74.3 H, Lymph % (Auto) 12.3 L, Tyler % (Auto) 12.9 H, Eos % (Auto) 0.1, Baso % (Auto) 0.1, Absolute Neuts (auto) 11.5 H, Absolute Lymphs (auto) 1.92, Total Counted Not Reportable, Differential Comment COMMENT, Diff Path Review August07/16/18 10:50: Sodium 122 L, Potassium 2.2 L*, Chloride 71 L*, Carbon Dioxide 38.0 H, Anion Gap 13, BUN 35 H, Creatinine 1.28, Estim Creat Clear Calc 82.52, Est GFR (MDRD) Af Amer 79, Est GFR (MDRD) Non-Af 65, BUN/Creatinine Ratio 27.3 H , Glucose 208 H, Calcium 8.9, Total Bilirubin 1.80 H, AST 21, ALT 27, Alkaline Phosphatase 96, Total Protein 8.1, Albumin 4.1, Globulin 4.0, Albumin/Globulin Ratio 1.0, Lipase 140 07/16/18 10:50: Magnesium 2.7 H 07/16/18 17:20: Sodium 126 L, Potassium 2.5 L*, Chloride 82 L, Carbon Dioxide 36.0 H, Anion Gap 8, BUN 29 H, Creatinine 1.12, Estim Creat Clear Calc 94.31, Est GFR (MDRD) Af Amer 92, Est GFR (MDRD) Non-Af 76, BUN/Creatinine Ratio 25.9 H , Glucose 139 H, Calcium 7.9 L 07/17/18 05:10: WBC 13.6 H, RBC 4.86, Hgb 14.6, Hct 43.9, MCV 90.3, MCH 30.0, MCHC 33.3, RDW 12.3, RDW Differential 40.2, Plt Count 214, MPV 9.5, Immature Gran % (Auto) 0.400, Neut % (Auto) 67.2, Lymph % (Auto) 21.2, Tyler % (Auto) 9.9, Eos % (Auto) 1.1, Baso % (Auto) 0.2, Absolute Neuts (auto) 9.1 H, Absolute Lymphs (auto) 2.88, Total Counted Not Reportable 07/17/18 05:10: Sodium 132 L, Potassium 2.3 L*, Chloride 87 L, Carbon Dioxide 35.0 H, Anion Gap 10, BUN 24 H, Creatinine 1.07, Estim Creat Clear Calc 98.71, Est GFR (MDRD) Af Amer 97, Est GFR (MDRD) Non-Af 80, BUN/Creatinine Ratio 22.4 H , Glucose 154 H, Calcium 7.6 L, Total Bilirubin 1.50 H, AST 32, ALT 29, Alkaline Phosphatase 73, Total Protein 6.3 L, Albumin 3.2, Globulin 3.1, Albumin/Globulin Ratio 1.0 Current Medications Acetaminophen (Tylenol) 650 mg PO Q6H PRN PRN PRN Reason: Mild Pain (1-3)/Temp > 100.7 F Hydrocodone Bitart/Acetaminophen ([place] 5mg-325mg) 1 tablet PO Q4H PRN PRN PRN Reason: SEVERE PAIN (6-01/24) Last Admin: 07/17/18 10:15 Dose: 1 tablet Enoxaparin Sodium (Lovenox) 40 mg SC DAILY@1000 KIM[facility] Last Admin: 07/17/18 08:10 Dose: 40 mg Pantoprazole Sodium 40 mg/ (Sodium Chloride) 110 mls @ 330 mls/hr IV Q24 [facility] Last Admin: 07/17/18 09:22 Dose: 330 mls/hr Potassium Chloride () 10 meq in 100 mls @ 100 mls/hr IV BOLUS Q1H [facility]IM[facility] Stop: 07/17/18 11:29 Last Admin: 07/17/18 09:22 Dose: 100 mls/hr Potassium Chloride 40 meq/ (Sodium Chloride) 1,020 mls @ 150 mls/hr IV .Q6H48M [facility] Last Admin: 07/17/18 09:32 Dose: 150 mls/hr Ketorolac Tromethamine (Toradol) 15 mg IV Q6H PRN PRN PRN Reason: PAIN Stop: 07/21/18 15:10 Last Admin: 07/17/18 09:19 Dose: 15 mg Magnesium Hydroxide (Milk Of Magnesia) 30 ml PO DAILY PRN PRN PRN Reason: Constipation Nutritional Formula (Lactose Free) (Ensure Clear) 120 ml PO TIDCM KIMI Last Admin: 07/17/18 08:09 Dose: 120 ml Ondansetron HCl (Zofran) 4 mg IV Q8H PRN PRN PRN Reason: NAUSEA Last Admin: 07/17/18 00:06 Dose: 4 mg Sodium Chloride () 5 - 15 ml IV UD PRN PRN Reason: SALINE FLUSH Last Admin: 07/16/18 18:05 Dose: 10 ml Medical Necessity - Tobacco Use Smoking Status: Heavy Smoker (>10/day) Tobacco Use: Cigarettes Assessment/Plan All Active Problems Dehydration (Acute) Hypokalemia (Acute) Hyponatremia (Acute) Intractable nausea and vomiting (Acute) 1. Intractable nausea and vomiting due to probable gastroenteritis * States he has a history of colitis and has had such nausea and vomiting in the past but the last episode was about 3 years ago. * Nausea and vomiting have improved and he is ready to try diet now. * Currently being hydrated with IV fluid normal saline. Tolerated Jell-O this morning. Will advance diet as tolerated. * IV Zofran as needed. * CT of the abdomen showed no bowel obstruction and nonobstructing stones in the kidneys and a left renal cyst. * 2. Acute hypotonic hypovolemic hyponatremia * Sodium was 122 on admission with a low chloride as well which is likely due to dehydration from incessant nausea and vomiting. * Sodium is up to 132 today with IV fluid ministration. We will cut down fluids top 100 cc/h. * chloride up to 87, from 71 on admission * 3. Hypokalemia: * Potassium was 2.2 on admission and despite replacement is only 2.3 this morning. * We will replace with IV potassium 40 mEq as well as 40 mEq of normal saline to give a total of 80 mEq of potassium. * Will repeat potassium level. Magnesium level normal. * 4. Metabolic alkalosis: * Bicarb was 38 on admission and this is likely due to contraction alkalosis from vomiting. * Bicarb down to 35 today. * Will monitor with hydration 5. Leuko cytosis: * Likely reactive. * White cell count was 15.6 on admission and is now 13.6. * No evidence of infection. Will monitor. * DVT prophylaxis: Lovenox Code Visit OBSV E&M: 91603 Subsequent observation care L3
[2018-07-17] MEDS: Acetaminophen 325 MG Tablet 650 MG PO (10:43)
[2018-07-17 12:25] LABS: Pathologist Review Reviewed
--- NOTE | 2018-07-17 14:30 | CASEMGMT ---
Social Work Note Pt is listed as self-pay. [facility] met with pt, introduced self and role at [facility]. Pt is alert and orientated x4. Pt confirms that he is self-pay. 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 SW provided pt with financial resources including HCAP application, Medicaid Application, [facility] information, [facility] Assistance programs, [employer], [facility] and prescription assistance resources. Pt states that he used to have Medicaid but now he doesn't qualify for it as he has a good paying job. Emma Shrestha POWERHOUSE ELECTRICIAN, DEPENDENCY COUNSELOR
[2018-07-17 18:35] LABS: Anion Gap 7 (5-15); BUN 21 mg/dL (7-18); BUN/Creat Ratio 16.9 RATIO (10-20); Calcium,Total 7.5 mg/dL (8.5-10.1); Chloride 99 mmol/L (98-107); Creatinine, Serum 1.24 mg/dL (0.70-1.30); EST Glomerular Filtration Rate 68 mL/min (>60); Est Glom Filt Rate - Afr Amer 82 mL/min (>60); Estimated Creatinine Clearance 85.18 ml/min; Glucose 168 mg/dL (74-106); Potassium 2.7 mmol/L (3.5-5.1); Sodium Level 137 mmol/L (136-145)
[2018-07-17] MEDS: Potassium Chloride 40 MEQ in 0.9% Normal Saline 1,000 ML 100 MEQ IV (20:50)
[2018-07-17] MEDS: 0.9% NaCl Peripheral Flush Adult/Peds IV (23:59)
[2018-07-18] VITALS (8 sets, daily range): BP systolic 134–170; BP diastolic 83–101; PULSE 61–87; RESP 14–18; TEMP 36.8–37.4; O2SAT 96–100
[2018-07-18] MEDS: Potassium Chloride 10mEq/100mL 10 MEQ/100 ML IV.SOLN. 100 MEQ IV BOLUS (01:33)
[2018-07-18] MEDS: HYDROcodone Bitartrate/Apap 5/325 Tablet PO ×3 (01:33→10:13)
[2018-07-18 06:30] LABS: Anion Gap 6 (5-15); BUN 16 mg/dL (7-18); BUN/Creat Ratio 15.4 RATIO (10-20); Calcium,Total 7.8 mg/dL (8.5-10.1); Chloride 106 mmol/L (98-107); Creatinine, Serum 1.04 mg/dL (0.70-1.30); EST Glomerular Filtration Rate 83 mL/min (>60); Est Glom Filt Rate - Afr Amer 101 mL/min (>60); Estimated Creatinine Clearance 101.56 ml/min; Glucose 149 mg/dL (74-106); Magnesium 2.6 mg/dL (1.6-2.6); Phosphorus 1.7 mg/dL (2.5-4.9); Sodium Level 141 mmol/L (136-145)
[2018-07-18] MEDS: Potassium Chloride 40 MEQ in 0.9% Normal Saline 1,000 ML 100 MEQ IV (06:35)
[2018-07-18] MEDS: Na Biphos/Potassium Phosphate PACKET 1 PACKET PO ×2 (08:17→12:24)
[2018-07-18] MEDS: 0.9% NaCl Peripheral Flush Adult/Peds IV ×2 (09:22→10:11)
[2018-07-18] MEDS: Ensure Clear 120 ML Liquid PO (10:20)
[2018-07-18] MEDS: Magnesium Hydroxide 30 ML UDC PO (10:21)
--- NOTE | 2018-07-18 11:33 | PCM.DC ---
- Discharge Diagnoses Current Active Problems: Current Active and Chronic Problems Dehydration (Acute) Hypokalemia (Acute) Hyponatremia (Acute) Intractable nausea and vomiting (Acute) You will use the following diet at home:: Other - high potassium diet Your food should be the consistency of: Regular Your liquids should be the consistency of: Regular/Thin Discharge Activity: Return to Normal Activity Weight Bearing Status: Weight bearing as tolerated Call your doctor if you observe: Numbness or Tingling, - - nausea, vomiting Instructions: Discharge Instructions for Hypokalemia, Discharge Instructions: Eating a High Potassium Diet, Discharge Instructions for Hyponatremia Additional Instructions: follow up at [facility] for repeat BMP and serum phosphorous to monitor potassium and phosphorous levels in your blood. Allergies/Adverse Reactions: Allergies No Known Allergies Allergy (Verified 07/16/18 10:10) Medications to take at Discharge Na Biphos/Potassium Phosphate [Neutra-Phos Packet] 1 packet PO TIDCM #10 packet 07/18/18 The following prescriptions were given: Na Biphos/Potassium Phosphate [Neutra-Phos Packet] 1 packet PO TIDCM #10 packet Primary Care Physician: Care Physician,No Primary [Primary Care Provider] - Test Results: Test results from this visit will be discussed in further detail at your follow-up appointment, if applicable. Please Follow Up With: [facility] - [phone] When: 2-3 days; please call office for appointment to set up PCP relationship Proposed Discharge Date: 07/18/18
--- NOTE | 2018-07-18 11:37 | DCINST_ITS ---
- Discharge Diagnoses Current Active Problems: Current Active and Chronic Problems Dehydration (Acute) Hypokalemia (Acute) Hyponatremia (Acute) Intractable nausea and vomiting (Acute) You will use the following diet at home:: Other - high potassium diet Your food should be the consistency of: Regular Your liquids should be the consistency of: Regular/Thin Discharge Activity: Return to Normal Activity Weight Bearing Status: Weight bearing as tolerated Call your doctor if you observe: Numbness or Tingling, - - nausea, vomiting Instructions: Discharge Instructions for Hypokalemia, Discharge Instructions: Eating a High Potassium Diet, Discharge Instructions for Hyponatremia Additional Instructions: follow up at [facility] for repeat BMP and serum phosphorous to monitor potassium and phosphorous levels in your blood. Allergies/Adverse Reactions: Allergies No Known Allergies Allergy (Verified 07/16/18 10:10) Medications to take at Discharge Na Biphos/Potassium Phosphate [Neutra-Phos Packet] 1 packet PO TIDCM #10 packet 07/18/18 The following prescriptions were given: Na Biphos/Potassium Phosphate [Neutra-Phos Packet] 1 packet PO TIDCM #10 packet Primary Care Physician: Care Physician,No Primary [Primary Care Provider] - Test Results: Test results from this visit will be discussed in further detail at your follow- up appointment, if applicable. Please Follow Up With: Nelly Cuello - [phone] When: 2-3 days; please call office for appointment to set up PCP relationship Proposed Discharge Date: 07/18/18
--- NOTE | 2018-07-18 11:37 | DS.PCM_ITS ---
Discharge Date and Diagnosis - Problem List Patient Problems: Active and Suspected Problems Dehydration (Acute) Hypokalemia (Acute) Hyponatremia (Acute) Intractable nausea and vomiting (Acute) Date of Admission: 07/16/18 Date of Discharge: 07/18/18 - Primary Discharge Diagnosis Active and Suspected Problems Dehydration (Acute) Hypokalemia (Acute) Hyponatremia (Acute) Intractable nausea and vomiting (Acute) hypophosphatemia - Secondary Discharge Diagnosis Chronic Problems Tobacco use disorder (Chronic) Irritable colon (Chronic) History of sciatica (Chronic) History of back pain (Chronic) Benign essential HTN (Chronic) Hospital Course and Treatment Operations: None Procedures: None Summary of Care Provided: The patient is a 43 year old M with past medical history as listed was admitted with a 6-day history of intractable nausea and vomiting. He had a similar incidents in the past for which he was hospitalized and said he had had colonoscopy in the past which was negative. On admission, he was found to have sodium of 122, potassium of 2.2. He was admitted and managed for hypovolemic hypotonic hyponatremia due to dehydration as well as hypokalemia. He was started on potassium supplementation and hydrated with IV fluids as well. He was also put on Zofran for nausea. Vomiting gradually stopped and sodium trended up to 132 and 141. Hypokalemia also resolved with replacement was for 1 day of discharge. Patient was also noted to have low phosphorus at 1.7 and this was replaced orally. Patient remained stable and was discharged home on 07/18/2018 with a prescription for oral Neutra-Phos packets. Patient does not have a primary care doctor and also does not have insurance. An appointment was made for him at the [facility] tomorrow (07/19/18) and he was advised advised to follow-up with a primary care doctor to establish PCP relationship. Was counseled that he would need his BMP checked within a couple of days to assess his electrolyte levels and for them to be replaced as needed. Patient seen and examined prior to discharge. He had no complaints and felt well. Review of systems otherwise negative. Labs and vitals reviewed. Home medications reviewed and reconciled. o/e: Vital Signs Height 6 ft Weight: 232 lb 12.93 oz Weight in Pounds 232.8 lbs Pulse Ox 98 Temperature 99.1 F Pulse Rate 85 Respiratory Rate 18 Blood Pressure 170/97 Blood Pressure Position Semi-Fowlers General: Alert, Oriented x3, Cooperative, No apparent distress HEENT: Atraumatic, PERRLA, EOMI, Normocephalic Oral: Dry Mucosa Neck: Supple, No JVD, Negative Carotid Bruits Lungs: Clear to auscultation, Normal air movement, No rhonchi, No wheeze, No rales Cardiovascular: Regular rate, Regular Rhythm, Normal S1, Normal S2, No murmurs Abdomen: Bowel Sounds Present, Soft, Non Tender, Non-Distended, No Hepato- splenomegaly Extremities: No clubbing, No cyanosis, No edema, Capillary Refill Less than 3 Seconds Skin: No rashes, No breakdown Musculoskeletal: No Tenderness to Palpation of Joints or Extremities Lymphatic: No Cervical, Supraclavicular, or Inguinal Adenopathy Neurological: Cranial nerves II-XII grossly intact Psych/Mental Status: Normal Affect, Appropriate, Alert and oriented to time, place, person, mood and affect Plan as above Patient Problems: Active and Suspected Problems Dehydration (Acute) Hypokalemia (Acute) Hyponatremia (Acute) Intractable nausea and vomiting (Acute) - Physical Exam Vital Signs Temp Pulse Resp BP Pulse Ox 99.4 F H 70 18 150/101 H 98 07/18/18 10:25 07/18/18 10:33 07/18/18 10:25 07/18/18 10:25 07/18/18 10:25 Oxygen Delivery Method Room Air Weight: 232 lb 12.93 oz Body Mass Index (BMI) 31.6 Intake and Output for Last 24 Hours 07/16/18 07/17/18 07/18/18 23:59 23:59 23:59 Intake Total 823 / 823 4878 / 4878 2319 / 2319 Output Total 575 / 575 1550 / 1550 975 / 975 Balance 248 / 248 3328 / 3328 1344 / 1344 Laboratory Tests Past 24 Hrs 07/16/18 07/17/18 07/18/18 10:50 17:35 05:40 Diff Path Review Reviewed Sodium 137 141 Potassium 2.7 L* 4.0 Chloride 99 106 Carbon Dioxide 31.0 29.0 Anion Gap 7 6 BUN 21 H 16 Creatinine 1.24 1.04 Estim Creat Clear Calc 85.18 101.56 Est GFR (MDRD) Af Amer 82 101 Est GFR (MDRD) Non-Af 68 83 BUN/Creatinine Ratio 16.9 15.4 Glucose 168 H 149 H Calcium 7.5 L 7.8 L Phosphorus 1.7 L Magnesium 2.6 Discharge Diet: - - high potassium diet Discharge Activity: Return to Normal Activity Weight Bearing Status: Weight bearing as tolerated Call your doctor if you observe: Numbness or Tingling, - - nausea, vomiting Home Medications: Medications to take at Discharge Na Biphos/Potassium Phosphate [Neutra-Phos Packet] 1 packet PO TIDCM #10 packet 07/18/18 Following Prescrptions Were Given to Patient: Na Biphos/Potassium Phosphate [Neutra-Phos Packet] 1 packet PO TIDCM #10 packet Primary Care Physician: Care Physician,No Primary [Primary Care Provider] - Please Follow Up With: [facility] - [phone] When: 2-3 days; please call office for appointment to set up PCP relationship Patient Instructions: Discharge Instructions for Hypokalemia, Discharge Instructions for Hyponatremia, Discharge Instructions: Eating a High Potassium Diet Disposition: Home Minutes spent on discharge:: 40 Patient Condition:: Stable Medical Necessity - Tobacco Use Smoking Status: Heavy Smoker (>10/day) Tobacco Use: Cigarettes Meaningful Use Info Meaningful Use Diagnoses (Choose all that apply): None applicable Code Visit Inpatient E&M: 49660 Disch Hosp
--- NOTE | 2018-07-18 12:32 | CASEMGMT ---
As per physician, pt needs to follow up w/a doctor post hospital to check potassium level. Pt has no insurance however. [facility] called [facility], was able to set up an appointment for pt on July 19 at 2pm. [facility] wrote down all of the information for pt for the appointment including what documentation he will need to bring, and gave it to pt. Pt explains that he does not qualify for Medicaid as his income is too high and his job does not offer insurance. Pt states is anxious about the hospital bills. SW offered supportive listening to pt. Pt states he did speak w/someone on the phone from the financial dept. SW gave pt information for [employer] and [facility] assist, and checked w/our financial dept. Pt did speak w/them on the phone, and Krista mailed pt information to apply for a reduced payment plan. SW let pt know that this information will be coming in the mail. Pt also asked about assist w/meds. As per RN, pt has just one script, pt states he will get the medication. SW explained if it is not affordable, he can use [employer] or even pay for a couple of pills and see if [facility] re-[facility] it, they also may be able to help. Pt states understanding, thanked SW for assist. SW let physician know pt set up for appt tomorrow at [facility]. Physician will likely discharge pt today. No further needs at this time. MAGGY Aaron, PRODUCTION SUPPORT SPECIALIST
--- NOTE | 2018-07-18 15:23 | CHAPLAIN ---
room was empty at time of visit attempt
== END 2018-07-18 13:45 | disposition home or self-care (01) ==
LOC: ED 14:02 → MS2 14:43
PROVIDERS: Emergency Provider Emergency Medicine; Visit Provider Student in an Organized Health Care Education/Training Program
DX: E86.0 Dehydration (principal); R11.2 Nausea with vomiting, unspecified; E87.6 Hypokalemia; E87.1 Hypo-osmolality and hyponatremia; I45.81 Long QT syndrome; I10 Essential (primary) hypertension; F17.210 Nicotine dependence, cigarettes, uncomplicated
CPT/HCPCS: 36415; 74177; 80048; 80053; 83690; 83735; 84100; 85025; 93005; 96361; 96365; 96366; 96375; 96376; 97802; 99218; 99285; J7030; J7040; Q9967; A4216; G0378; J2405

== ENCOUNTER 2020-01-17 07:23 | Emergency (ER) | payer MEDICAID, SELFPAY ==
[2020-01-17 07:23] VITALS: BP 179/101; PULSE 107; RESP 19; TEMP 36.2; O2SAT 96; BMI 29.8; BMI 34.7
--- NOTE | 2020-01-17 08:02 | ED.VISSUMM ---
- ER Visit Summary Date of Service: 01/17/20 Chief Complaint: Back pain and sciatica History of Present Illness: The patient is a 44 M who presents with back pain and sciatica that began today. Patient states he bent over to mushroom picker to empty milk crates and felt pain in his back. Patient states the pain radiates down his right leg. Patient states this feels similar to prior episodes of sciatica. Patient states his pain is worse with any bending or moving. Patient does admit to some tingling in his left side but denies any weakness. Patient does admit to some tingling in his right toes. Patient denies any bowel or bladder changes. Patient denies any saddle anesthesia. Patient denies any abdominal pain. Patient denies any fevers or chills. Patient denies any direct trauma or injury. Physical Examination: Vital signs are stable. Patient is afebrile. Patient is in no acute distress. Musculoskeletal exam reveals tenderness over the lumbar paraspinal muscles. There is spasm of the lumbar paraspinal muscles. There is no midline tenderness. There is no bony crepitance or step-off. There is no edema or ecchymosis noted. Range of motion was limited in all motions of the lumbar spine secondary to pain. Strength is 5/5 bilateral in the lower extremities. Deep tendon reflexes were 2/4 bilaterally in the lower extremities. There are no sensory deficits noted. Emergency Department Course and Treatment: Patient was given injections of Toradol and Norflex here. Patient was given prescriptions for Naprosyn and Flexeril. Patient was instructed to use ice to the area. Patient was given a referral for a primary care physician to follow-up with in 5 to 7 days. Patient understood and was agreeable with the plan. All questions were answered. Disposition: Discharge home Impression: 1. Sciatica This note was generated with Lingt dictation software. It may contain incorrect words, spelling, and punctuation that were not noted in review of the chart prior to signing ED Disposition - Plan for ED Patient: Disposition: Home or Assisted Living Diagnosis: Sciatica Instructions: ED LUMBAR RADICULOPATHY Prescriptions: cycloBENZAPRine HCl [Flexeril] 10 mg PO QHS PRN PRN #10 tab PRN Reason: Muscle Spasm Transmission Status: Pending to [facility] Naproxen [Naprosyn] 500 mg PO BID PRN #20 tab Transmission Status: Pending to [facility] Referrals: Carlos Alberto Hansen MD [STAFF PHYSICIAN] - 5-7 Days
[2020-01-17] MEDS: Ketorolac 60 MG/2 ML Vial IM (08:56)
[2020-01-17] MEDS: Orphenadrine 100 MG Tablet PO (09:14)
[2020-01-17 09:21] VITALS: RESP 16
== END 2020-01-17 09:22 | disposition home or self-care (01) ==
LOC: ED 08:24
PROVIDERS: Emergency Provider Emergency Medicine
DX: M54.30 Sciatica, unspecified side (principal); F17.200 Nicotine dependence, unspecified, uncomplicated
CPT/HCPCS: 96372; 99282

== ENCOUNTER 2020-06-23 17:08 | Emergency (ER) | payer MEDICAID, SELFPAY ==
[2020-01-17 07:23] VITALS: BMI 34.7
[2020-06-23 17:09] VITALS: BP 138/85; PULSE 98; RESP 20; TEMP 36.6; O2SAT 96; BMI 36.3
[2020-06-23 17:12] VITALS: BP 138/85; PULSE 98; RESP 20; TEMP 36.6; O2SAT 98
--- NOTE | 2020-06-23 18:48 | ED.DCSUM_ITS ---
- ER Visit Summary Date of Service: 06/23/20 Chief Complaint: Cough with left lower rib cage pain History of Present Illness: The patient is a 45 M past medical history of kidney stone and prior appendectomy and tonsillectomy. Patient states he had a cough for about a week. Some yellow phlegm. No fever or chills. No shortness of breath. Said he coughs already other day he thinks he injured his left lower rib cage and has had pain there since that time. No history of DVT or PE. No recent travel, surgery or immobilization. No hemoptysis. No leg pain or swelling. He denies any nausea, vomiting or diarrhea. Physical Examination: Well-appearing middle-aged male. Vital signs stable afebrile. Pulse ox 98% on room air no signs of hypoxia. H EENT exam unremarkable. Mild laryngitis. No trouble swallowing or breathing. No stridor or drooling. Neck nontender no lymphadenopathy. Lungs dry cough but no rales, rhonchi or wheezing. Chest wall left-sided rib cage tenderness. No ecchymosis or bruising. No subcu air or crepitance. Heart regular rhythm no murmur. Abd omen soft nontender. Patient moving all 4 extremities. Neurovascular intact. Calves are nontender without edema or cords. Neurologically is awake and alert. Test Results: Chest x-ray 2 views AP lateral interpreted by myself shows acute abnormality. No obvious rib fracture. No infiltrate. This was also read by the radiologist and agrees. Repeat exam no change at 8 PM. Patient be discharged to home. Emergency Department Course and Treatment: Patient's history and exam are consistent with a viral URI. Chest x-ray being obtained to be evaluated for possible pneumonia and/or rib fracture. Treatment Plan: Tylenol and Motrin for rib cage pain. Follow-up with not improving. Was written for Hycodan for his cough and his rib cage pain. Disposition: Discharge Impression: Viral URI Acute left lateral rib cage strain This note was generated with Youneeq dictation software. It may contain incorrect words, spelling, and punctuation that were not noted in review of the chart prior to signing ED Disposition - Plan for ED Patient: Disposition: Home or Assisted Living Instructions: ED URI, Viral, No Abx (Adult) Prescriptions: Hydrocodone Bit/Homatropine [Hycodan Syrup] 5 ml JT Q4H PRN PRN 4 Days #60 udc PRN Reason: Cough Prescription Printed Referrals: Gold Samson MD [STAFF PHYSICIAN] - 1 Week if not improving Additional Instructions: Tylenol and/or Motrin for rib cage pain. Follow-up if not improving.
--- NOTE | 2020-06-23 19:02 | RAD_ITS ---
STUDY: X-RAY CHEST REASON FOR EXAM: Male, 45 years old. cough TECHNIQUE: PA and lateral views of the chest. COMPARISON: None. FINDINGS: No pleural effusion, vascular congestion or acute pulmonary inflammatory change. Scarring in the left lung. Normal size heart. Normal mediastinum and han. Normal visualized pulmonary arteries. Normal visualized aortic arch and descending thoracic aorta. Normal visualized thoracic spine. Normal visualized ribs, clavicles, and shoulders. There is no demonstrated abnormality of the visualized soft tissue structures of the upper abdomen. RAD/Chest PA and Lateral IMPRESSION: No acute findings. Electronically Signed: Krupa Barlow MD at 19:27 EST Tel , Service support ,
--- NOTE | 2020-06-23 20:05 | ED.DEP ---
ED Disposition - Plan for ED Patient: Disposition: Home or Assisted Living Instructions: ED URI, Viral, No Abx (Adult) Prescriptions: Hydrocodone Bit/Homatropine [Hycodan Syrup] 5 ml JT Q4H PRN PRN 4 Days #60 udc PRN Reason: Cough Prescription Printed Referrals: Gold Samson MD [STAFF PHYSICIAN] - 1 Week if not improving Additional Instructions: Tylenol and/or Motrin for rib cage pain. Follow-up if not improving.
== END 2020-06-23 20:48 | disposition home or self-care (01) ==
PROVIDERS: Emergency Provider Emergency Medicine
DX: J06.9 Acute upper respiratory infection, unspecified (principal); Z87.442 Personal history of urinary calculi
CPT/HCPCS: 71046; 99282

== ENCOUNTER 2021-03-10 11:59 | Inpatient (IN) | payer MEDICAID, SELFPAY ==
[2021-03-10 12:00] VITALS: BP 160/109; PULSE 102; RESP 16; TEMP 37.6; O2SAT 98; BMI 27.8
--- NOTE | 2021-03-10 12:16 | EDS_ITS ---
HPI History of Present Illness Chief Complaint: Substance Abuse Detail of Chief Complaint: Requesting detox from alcohol Informant: patient Narrative Narrative: Patient presents to the emergency department with complaint of of wanting detox from alcohol. Patient states that he normally drinks 3 to 424 ounce cans of high alcohol beer daily and then will drink fireball shots throughout the day. Patient states that his last drink was between 930 and 10 AM today. Patient feels somewhat anxious and jittery. Patient also admits occasionally using methamphetamines. He denies regular opiate use although he states he has used in the past. Patient denies recent illness. He denies abdominal pain but does complain of some mild nausea. PFSH PFSH Home Medications cyclobenzaprine 10 mg PO QHS PRN PRN #10 tab 01/17/20 [Rx Last Taken Unknown] naproxen 500 mg PO BID PRN #20 tab 01/17/20 [Rx Last Taken Unknown] Allergy/AdvReac Type Severity Reaction Status Date / Time No Known Allergies Allergy Verified 03/10/21 12:03 Family History Aunt Crohns disease Social History Smoking Status: Current every day smoker ROS ROS ED ROS Narrative Requesting detox from alcohol Constitutional Constitutional ED: Reports systems reviewed and no addt'l complaints, except as documented; Denies body ache(s), change in weight or chills Eyes Eyes: Denies acute decrease in peripheral vision, change in vision, double vision or loss of vision ENT ENT ED: Reports none; Denies ear pain, lip swelling, loss taste/smell, neck pain, otalgia or sore throat Cardiovascular Cardiovascular: Reports none; Denies abdominal pain, chest pain with activity, leg edema, lightheadedness, palpitations, rapid heart rate or syncope Respiratory/Chest Respiratory/Chest: Reports none; Denies change in mental status, dry cough, dyspnea, hemoptysis, shortness of breath at rest or shortness of breath with exertion Gastrointestinal Gastrointestinal: Reports none; Denies abdominal pain, change in stool character, diarrhea, hematemesis, hematochezia, melena, rectal bleeding or vomiting Genitourinary Genitourinary ED: Reports none; Denies abdominal discomfort, anuria, dysuria, genital pain or polyuria Musculoskeletal Musculoskeletal: Reports none; Denies arthralgias, back pain, difficulty walking, extremity pain, muscle weakness or myalgias Integumentary Reports none; Denies abscess or rash Neurologic Neurologic: Reports none; Denies abnormal gait, confusion, focal weakness, frequent falls, headache(s), loss of vision, numbness, paresthesias, radicular pain, vertigo or weakness Psychiatric Psychiatric: Reports systems reviewed and no addt'l complaints, except as documented and none; Denies behavioral changes, confusion, difficulty concentrating, hallucinations, suicidal ideation, tactile hallucinations or visual hallucinations Endocrine Endocrinology: Denies none, cold intolerance, excessive sweating, fatigue or heat intolerance Hematologic/Lymphatic Hematologic/Lymphatic: Reports none; Denies anemia, easy bleeding or easy bruising Allergic/Immunologic Allergic/Immunologic ED: Denies as per HPI, none, lip swelling, mouth swelling, throat swelling, tongue swelling or hives EXAM Physical Exam Const Vital Signs: 03/10/21 12:00 Temperature 99.6 F H Temperature Source Temporal Pulse Rate 102 H Respiratory Rate 16 Blood Pressure 160/109 H Blood Pressure Mean 126 Pulse Ox 98 Oxygen Delivery Method Room Air Positive well nourished and well developed General Appearance ED: well developed and NAD HEENT Reports TM's clear and moist mucous membranes normocephalic and atraumatic; Negative for trauma or tenderness Tympanic Membrane ED: Yes TM's clear Eyes PERRL and EOMs intact bilaterally General Eye ED: Negative for pale conjunctiva or scleral icterus Neck no lymphadenopathy, supple and no JVD General: Negative for tenderness Chest Wall inspection of chest normal and palpation of chest normal Chest: Negative for tenderness Resp normal respiratory effort and clear to auscultation bilaterally Effort and Inspection: Negative for respiratory distress or pain with movement Auscultation: Negative for rhonchi, wheezes or diminished lung sounds Cardio regular rate, regular rhythm, S1 normal heart sound, S2 normal heart sound and no murmurs Peripheral Pulses: pulses 2+ throughout GI normal to inspection, nondistended, normoactive bowel sounds, soft to palpation, non-tender, non-distended and no masses Back/Spine no CVA tenderness and no thoracic nor lumbar tenderness Extremity normal to inspection General Extremety ED: Negative for edema General Extremity: Negative for edema Neuro oriented x3, CN's II-XII intact bilaterally, no sensory deficits noted and gait normal Sensorium / Orientation: awake, alert, oriented to person, oriented to place and oriented to time Motor Exam: strength 5/5 throughout and strength abnormal Psych mental status grossly normal Skin no rashes or lesions noted and no wounds MDM MDM MDM Narrative Medical decision making narrative: IV line established on arrival. Patient had basic labs ordered results of which will be pending. Patient had a Covid test ordered which is pending. Case discussed with hospitalist who will evaluate patient for admission Lab Data Attestation: I reviewed the patient's lab results. Discharge Plan Triage Chief Complaint: Substance Abuse ED Provider: Cholo Dial Dx/Rx/DC Orders Prescriptions: No Action cyclobenzaprine 10 MG tablet 10 mg PO QHS PRN PRN (Reason: Muscle Spasm) Qty: 10 RF: 0 naproxen 500 MG tablet 500 mg PO BID PRN Qty: 20 RF: 0 Primary Care Provider: Care Physician,No Primary Referrals: Care Physician,No Primary [Primary Care Provider] - Disposition Disposition: Acute Care Hospital [facility]
--- NOTE | 2021-03-10 12:48 | HP.PCM.HOS_ITS ---
HPI - General General Date of Admission: 03/10/21 HPI Narrative ANASTASIA MARTINEZ, is a 45 M Ms.with history of chronic alcohol use since age of [age] came to ER for alcohol detox. Patient drinks 3 to 4 cans of 24 ounces beer along with fireball shots throughout the day. Patient also has history of chronic opioid use but he does intermittently last 1 4 days ago; about 1 g heroin and snorting or smoking. He denies IV use. He also does intermittently methamphetamine, smokes marijuana and cigarettes 1 pack daily since early age. Patient has nausea and vomiting about 3 times and feels dehydrated. He also states he feels gastritis, epigastric pain mainly after eating food. He is not on PPI. Did not had hematemesis, melena or GI bleed, jaundice or other stigmata of chronic liver disease He claims lower back pain with radiation to right lower extremity with numbness of great toe and feet. He denies urinary incontinence or loss of perineal sensation. Patient is homeless. Other comorbidities include hypertension. PFSH Home Medications cyclobenzaprine 10 mg PO QHS PRN PRN #10 tab 01/17/20 [Rx Last Taken Unknown] naproxen 500 mg PO BID PRN #20 tab 01/17/20 [Rx Last Taken Unknown] Allergy/AdvReac Type Severity Reaction Status Date / Time No Known Allergies Allergy Verified 03/10/21 12:03 Family History Aunt Crohns disease Social History Smoking Status: Current every day smoker tobacco type: cigarettes ROS ROS Narrative Constitutional: Reports fatigue and weakness. Looks dehydrated HEENT: Reports systems reviewed and no addt'l complaints, except as documented Respiratory/Chest: Denies chest pain, shortness of breath at rest or with e xertion Gastrointestinal: Denies coffee ground emesis, hematemesis or melena. Rest as mentioned in HPI Genitourinary: Denies burning urination or new urinary tract symptoms Musculoskeletal: Reports back pain sciatica as mentioned in HPI. Neurologic: Denies seizure-like activity skin: Unhygienic nails. Endocrinology: Reports systems reviewed and no addt'l complaints, except as documented Hematologic/Lymphatic: Reports systems reviewed and no addt'l complaints, except as documented Rest 12 ROS are negative except as mentioned in HPI Vital Signs Vital Signs Vital Signs: 03/10/21 12:00 Temperature 99.6 F H Temperature Source Temporal Pulse Rate 102 H Respiratory Rate 16 Blood Pressure 160/109 H Blood Pressure Mean 126 Pulse Ox 98 Oxygen Delivery Method Room Air Weight Weight: 205 lb 4.8 oz Body Mass Index (BMI) 27.8 Physical Exam Narrative General: Alert, Oriented x3, Cooperative HEENT: Atraumatic, PERRLA, EOMI, Normocephalic Oral: Oral mucosa dry. No Gingival or Mucosal Lesions/ Ulcerations Neck: Supple, No JVD, Negative Carotid Bruits Lungs: Air entry equal in bilateral lung bases. No crepitation/rhonchi Cardiovascular: Mild sinus tachycardia, Normal S1, Normal S2, No murmurs Abdomen: Bowel Sounds Present, Soft, Non Tender, Non-Distended. No palpable mass. : No renal angle tenderness. No suprapubic tenderness. Extremities: No edema, Capillary Refill Less than 3 Seconds Skin: Black stain toenails. Musculoskeletal: No Tenderness to Palpation of Joints or Extremities Neurological: Cranial nerves II-XII grossly intact, DTR 2+/4 and Symmetrical, Neuro grossly intact Psych/Mental Status: Normal Affect, Appropriate. Results Lab / Micro Data Result Diagrams: 03/10/21 13:00 03/10/21 13:00 Assessment & Plan Assessment/Plan (1) Acute hyperactive alcohol withdrawal delirium: PLAN: 1. Acute alcohol withdrawal syndrome with chronic alcohol use, dependence and tolerance: Patient is being admitted on MedSurg floor. IV fluid Ringer lactate for dehydration. Labs reviewed. K3.5. Mild hypokalemia, K. Dur 40 M EQ twice daily for 2 days as patient is alcoholic and potassium might tend low on subsequent days. Started on phenobarbital along with other supportive medications. Protonix 40 mg p.o. daily. On thiamine, folic acid and multivitamin. 2. Chronic back pain, sciatic in nature: Patient does not have point tenderness in lumbar spine. On Neurontin. Last CT abdomen/pelvis on July 2018 reported old compression of L1, stable mild compression of T12 with a depressed endplate. Minimal retrolisthesis of L5-S1. Posterior annular bulge at L4-5 impressing upon thecal sac. Advised to follow-up with a spine surgeon after discharge and outpatient. Since patient had MRI in August 2011 which reported subacute L1 compression fracture worse on the right side. 3. Chronic marijuana and cigarette smoking: Nicotine patch. Advised smoking cessation 4. Chronic opioid use and dependence: Last use was 4 days ago and patient does not seem in opioid withdrawal symptoms. 5. Chronic methamphetamine use and dependence 6. DVT prophylaxis: Low risk. Early ambulation encouraged CODE STATUS: Full code Charges/Coding Visit Charges Inpatient E&M: 57246 Init Hosp L3
--- NOTE | 2021-03-10 13:04 | NURSING ---
MED SURG NELLY ALCOHOL WITHDRAWAL, REQUEST FOR ALCOHOL DETOX
[2021-03-10 13:05] LABS: Absolute Lymphocyte Count 2.12 X10^3/uL (0.83-4.51); Absolute Neutrophil Count 6.5 X10^3/uL (2.0-7.7); Basophil# 0.07 X10^3/uL; Basophil% 0.7 % (0-1); Eosinophil# 0.04 X10^3/uL; Eosinophils% 0.4 % (0-5); Hematocrit 42.7 % (40-54); Hemoglobin 13.7 g/dL (13.0-16.5); Lymphocyte # 2.12 X10^3/ul (0.83-4.51); Lymphocyte % 21.8 % (19-41); Mean Corp Hgb Conc 32.1 g/dL (32-36); Mean Corpuscular Hgb 29.6 pg (27.0-32.0); Mean Corpuscular Volume 92.2 fL (80-94); Mean Platelet Vol. 8.3 fl (6.2-12.0); Monocyte# 0.97 X10^3/uL; NRBC Flagged by Analyzer 0 % (0-5); Neutrophil # 6.49 X10^3/uL (2.7-7.7); Neutrophil % 66.8 % (47-70); Platelet Count 329 K/mm3 (150-450); RBC Distribution Width CV 12.6 % (11.6-14.6); RBC Distribution Width SD 42.6 fl (35.1-43.9); Red Blood Count 4.63 M/mm3 (4.6-6.2); White Blood Count 9.7 K/mm3 (4.4-11.0)
[2021-03-10 13:16] LABS: Alcohol, Blood (Medical)-Serum < 3.0 mg/dL
[2021-03-10 13:22] LABS: ALB/GLOB Ratio 0.7 RATIO (0.9-2.4); AST(SGOT) 11 U/L (15-37); Alanine Aminotransfer ALT/SGPT 22 U/L (16-61); Alkaline Phosphatase 85 U/L (45-117); Anion Gap 9 (5-15); BUN 9 mg/dL (7-18); BUN/Creat Ratio 11.7 RATIO (10-20); Calcium,Total 9.1 mg/dL (8.5-10.1); Chloride 101 mmol/L (98-107); Creatinine, Serum 0.77 mg/dL (0.70-1.30); EST Glomerular Filtration Rate 116 mL/min (>60); Est Glom Filt Rate - Afr Amer 141 mL/min (>60); Estimated Creatinine Clearance 134.37 ml/min; Globulin 4.5 g/dL (2.2-4.2); Glucose 185 mg/dL (74-106); Potassium 3.5 mmol/L (3.5-5.1); Protein, Total 7.5 g/dL (6.4-8.2); Sodium Level 140 mmol/L (136-145)
--- NOTE | 2021-03-10 13:22 | CM.ED ---
SOCIAL WORK Reason for referral- requesting detox from alcohol Patient admitted to [facility] for alcohol withdrawal management. Call to Addiction Therapist, Faye to update on patient's admission. Anticipate Cuca to be in tomorrow to assess. Plan: [facility], CENTER LINE CUTTER OPERATOR, SHIPPING CLERK CRATING
[2021-03-10] MEDS: 0.9% Normal Saline 1,000 ML 150 ML IV (13:26)
--- NOTE | 2021-03-10 13:42 | ED.RN ---
LR STARTED PER HOSPITALIST.
[2021-03-10 13:47] VITALS: BP 143/104; PULSE 91; RESP 16; TEMP 37.6; O2SAT 96
[2021-03-10 14:07] LABS: Amphetamine Urine VISTA NEGATIVE (<1000 ng/mL); Barbiturate Urine VISTA NEGATIVE (< 200 ng/mL); Benzodiazepine Urine VISTA NEGATIVE (< 200 ng/mL); Cocaine Urine VISTA NEGATIVE (< 300 ng/mL); Ecstacy Urine VISTA NEGATIVE (< 500 ng/mL); Methadone Urine VISTA NEGATIVE (< 300 ng/mL); PCP Urine VISTA NEGATIVE (< 25 ng/mL); THC Urine VISTA POSITIVE (< 50 ng/mL); Vista UDS pH Range 8
[2021-03-10 14:44] VITALS: BP 132/100; PULSE 90; RESP 16; TEMP 36.6; O2SAT 99; BMI 27.8
[2021-03-10] MEDS: Lactated Ringers 1,000 ML 125 ML IV (15:09)
[2021-03-10] MEDS: Pantoprazole Sodium 40 MG Tablet PO (17:22)
[2021-03-10] MEDS: Potassium Chloride Oral Tablet 20 MEQ 40 MEQ PO (17:23)
[2021-03-10] MEDS: Gabapentin 300 MG Capsule PO (17:25)
[2021-03-10] MEDS: Phenobarbital 32.4 MG Tablet PO ×2 (17:25→22:06)
[2021-03-10 18:00] VITALS: BP 128/99; PULSE 88; RESP 16; TEMP 36.7; O2SAT 99
[2021-03-10 20:03] VITALS: BP 138/84; PULSE 87; RESP 14; TEMP 36.2; O2SAT 95
[2021-03-10] MEDS: Ondansetron 8 MG Tablet PO (22:08)
[2021-03-10 22:25] LABS: Magnesium 2.3 mg/dL (1.6-2.6)
[2021-03-10 22:36] LABS: Hemoglobin A1c 7.1 % (3.8-5.6)
[2021-03-10 22:52] LABS: HIV - WCH Non-Reactive (Nonreactive)
[2021-03-11] MEDS: hydrOXYzine PAM 25 MG Capsule 50 MG PO ×2 (02:46→08:03)
[2021-03-11] MEDS: Phenobarbital 32.4 MG Tablet PO ×6 (02:46→22:29)
[2021-03-11] MEDS: Mag Hydrox/Al Hydrox/Simeth 30 ML UDC PO (02:46)
[2021-03-11 02:49] VITALS: BP 152/97; PULSE 84; RESP 18; TEMP 37.1; O2SAT 99
--- NOTE | 2021-03-11 07:04 | PN.HOSP_ITS ---
Subjective Subjective Patient overnight with continued mild restlessness however he notes that this has been improving and he did sleep with less and tremors. He does complain of mild nausea but otherwise no acute complaints at this time. Discussed the fact of his new onset diabetes as well as likely underlying hypertension and plan for initiation of treatment which patient is amenable. Patient is homeless therefore there are several barriers to care. Patient denies fevers, chills, emesis, abdominal pain, chest pain or dyspnea. Objective Data Objective Data Vital Signs: Vital Signs Temp Pulse Resp BP Pulse Ox 98.7 F 84 18 152/97 H 99 03/11/21 02:49 03/11/21 02:49 03/11/21 02:49 03/11/21 02:49 03/11/21 02:49 Oxygen Delivery Method Room Air Weight: 205 lb 4.8 oz Body Mass Index (BMI) 27.8 Intake & Output: Intake and Output for Last 24 Hours 03/09/21 03/10/21 03/11/21 23:59 23:59 23:59 Intake Total 1600.42 / 2350.42 1025 / 1025 Balance 1600.42 / 2350.42 1025 / 1025 Lab / Micro Data Result Diagrams: 03/10/21 13:00 03/10/21 13:00 Labs: Laboratory Results - last 24 hr 03/10/21 13:00: WBC 9.7, RBC 4.63, Hgb 13.7, Hct 42.7, MCV 92.2, MCH 29.6, MCHC 32.1, RDW Std Deviation 42.6, RDW Coeff of Karley 12.6, Plt Count 329, MPV 8.3, Immature Gran % (Auto) 0.300, Neut % (Auto) 66.8, Lymph % (Auto) 21.8, [place] % (Auto) 10.0, Eos % (Auto) 0.4, Baso % (Auto) 0.7, Absolute Neuts (auto) 6.5, Absolute Lymphs (auto) 2.12, Nucleated RBC % 0 03/10/21 13:00: Sodium 140, Potassium 3.5, Chloride 101, Carbon Dioxide 30.0, An ion Gap 9, BUN 9, Creatinine 0.77, Estim Creat Clear Calc 134.37, Est GFR (MDRD) Af Amer 141, Est GFR (MDRD) Non-Af 116, BUN/Creatinine Ratio 11.7, Glucose 185 H , Calcium 9.1, Total Bilirubin 0.30, AST 11 L, ALT 22, Alkaline Phosphatase 85, Total Protein 7.5, Albumin 3.0 L, Globulin 4.5 H, Albumin/Globulin Ratio 0.7 L 03/10/21 13:00: Ethyl Alcohol < 3.0 03/10/21 13:00: Phosphorus 4.0, Magnesium 2.3 03/10/21 13:00: HIV 1&2 Antibody Non-Reactive 03/10/21 13:00: Hemoglobin A1c 7.1 H 03/10/21 13:40: Urine Opiates Screen NEGATIVE, Urine Methadone Screen NEGATIVE, Ur Barbiturates Screen NEGATIVE, Ur Phencyclidine Scrn NEGATIVE, Ur Amphetamines Screen NEGATIVE, U Methamphetamin-MDMA NEGATIVE, U Benzodiazepines Scrn NEGATIVE, Urine Cocaine Screen NEGATIVE, U Cannabinoids Screen POSITIVE H, Ur Drug Screen Comment Micro: Microbiology 03/10/21 12:50 Nasal Secretion SARS-CoV-2 Antigen (Rapid) - Final Physical Exam Narrative Physical Examination: General: Awake, alert, oriented x 3 and cooperative, laying in the PCU bed, fatigued otherwise no acute complaints, tremors lessened. Skin: Normal color, normal turgor, no icterus, no cyanosis. HEENT: AT/NC, EOMI, PERRLA, improved mildly dry MM. Lungs: Mildly diminished, greater bases, appropriate effort, no rales, ronchi or wheezing. Heart: Regular rate and rhythm; no gallop, rub audible. Abdomen: Soft, mild generalized discomfort to palpation but no rebound or guarding, ND, mildly hyperactive bowel sounds. Extremities: No cyanosis, clubbing, or edema. Neurological: Patient awake, alert, oriented as noted, cognitive function intact; pupils equally reactive to light and accommodation, cranial nerves II- XII grossly normal, moving all 4 extremities, no focal deficits, strength mildly global decreased secondary to acute presentation, tremors lessens. Psychiatric: Affect appears fatigued, no evidence of any distress, no acute evidence of depressive or anxiety feelings. Assessment & Plan Assessment/Plan (1) Acute hyperactive alcohol withdrawal delirium: PLAN: The patient is a 45 y/o M w/ PMHx: HTN, IBS, Tobacco use, Chronic back pain with sciatica with chronic paresthesias w/ chronic opiate abuse concurrently w/ heroin 1 gm daily snorted/smoked, currently homeless with ongoing Chronic EtOH abuse reporting at least 3-4 tall boys daily as well as fireball shots who presents to the [facility] on 03/10/21 secondary to acute EtOH and opiate withdrawal. 1. Acute EtOH Withdrawal: Patient admitted to medical surgical floor, routine labs obtained in the ED upon presentation, given interest in sobriety, will initiate and continue on protocol with taper course of Phenobarbital, scheduled gabapentin for seizure prophylaxis, as needed Catapres, Bentyl, Vistaril, IV fluids, IV antiemetics, Tylenol as needed for pain. Will consult Case management for assistance for transition to next level of rehabilitation care. , stan p ending. 2. Hyperglycemia w/ New Onset Diabetes mellitus type II: Patient admission glucose 185, HgbA1c 7.1%, will transition to ADA diet, add accu checks with ISS, consult nutrition for education and teaching. 3. Elevated BP without hypertensive diagnosis, Suspect underlying HTN: Patient with elevated blood pressures throughout his stay, do suspect likely underlying hypertension as no alteration with improvement of his withdrawal symptoms, given new onset diabetes will start low-dose lisinopril and continue to monitor, as needed IV hydralazine if necessary. 4. Polysubstance Abuse, denied IV drug abuse but chronic opiate abuse: Patient notes last opiate primarily heroin use 4 days prior, denies any withdrawal symptoms, will defer at this time acute treatment. Patient chronically also uses methamphetamines. Given significant polysubstance abuse although denies IV drug abuse will obtain HIV and hepatitis panel to be cautious. Case management consulted for substance abuse. 5. Tobacco Abuse: Encouraged cessation, inpatient consultation per RT, NR if desired. 6. Chronic back pain with radiculopathy and sciatica: We will continue Neurontin, prior imaging with noted 07/2018 old compression L1, stable mild compression T12 and depressed endplate, minimal retrolisthesis L5-S1, posterior annular bulge L 4-5 with impressing upon thecal sac. Advised patient to follow- up with spinal surgeon at discharge and outpatient. 7. GERD: We will maintain on PPI. 8. DVT prophylaxis: Low risk, encourage ambulation. Charges/Coding Visit Charges Inpatient E&M: 02508 Subs Hosp L3
[2021-03-11] MEDS: Ondansetron 8 MG Tablet PO (08:03)
[2021-03-11] MEDS: Potassium Chloride Oral Tablet 20 MEQ 40 MEQ PO (08:04)
[2021-03-11] MEDS: Folic Acid 1 MG Tablet PO (08:04)
[2021-03-11] MEDS: Thiamine Hydrochloride 100 MG Tablet PO (08:05)
[2021-03-11] MEDS: Pantoprazole Sodium 40 MG Tablet PO (08:07)
[2021-03-11 08:30] VITALS: BP 150/88; PULSE 76; RESP 16; TEMP 36.3; O2SAT 95
[2021-03-11] MEDS: Insulin Lispro 100 UNIT/ML INSULN.PEN SC ×2 (11:36→22:27)
[2021-03-11 11:41] LABS: Bedside Glucose 193 mg/dL (70-110)
[2021-03-11 14:30] VITALS: BP 145/89; PULSE 82; RESP 16; TEMP 36.6; O2SAT 98
[2021-03-11] MEDS: Lisinopril 10 MG Tablet PO (15:46)
[2021-03-11 16:51] LABS: Bedside Glucose 146 mg/dL (70-110)
[2021-03-11 20:15] VITALS: BP 155/78; PULSE 103; PULSE 92; RESP 17; RESP 18; TEMP 37.2; O2SAT 95
[2021-03-11 22:00] VITALS: BP 155/78; PULSE 102; RESP 17; TEMP 36.9; O2SAT 96
[2021-03-11 22:36] LABS: Bedside Glucose 156 mg/dL (70-110)
[2021-03-12] VITALS (8 sets, daily range): BP systolic 113–152; BP diastolic 79–102; PULSE 83–108; RESP 16–20; TEMP 36.6–37.3; O2SAT 94–100
[2021-03-12] MEDS: Phenobarbital 32.4 MG Tablet PO ×6 (02:44→22:34)
[2021-03-12] MEDS: Insulin Lispro 100 UNIT/ML INSULN.PEN SC ×3 (06:45→22:33)
--- NOTE | 2021-03-12 06:46 | PCM.PN.HOSP ---
Subjective Subjective Patient notes mild withdrawal symptoms with tremor but otherwise improving. He did note significant bilateral eye discharge and itching starting overnight. Discussed need for aggressive discharge plan given homeless status with new onset diabetes diagnosis and high blood pressure as well as need to assure remain sober with current plan per discussion with case management transition to direct admission to the residential 180 unit on Monday. Patient denies fevers, chills, nausea, emesis, abdominal pain, chest pain or dyspnea. Objective Data Objective Data Vital Signs: Vital Signs Temp Pulse Resp BP Pulse Ox 98.9 F 108 H 17 148/89 H 96 03/12/21 01:46 03/12/21 04:09 03/12/21 04:09 03/12/21 01:46 03/12/21 01:46 Oxygen Delivery Method Room Air Weight: 205 lb 4.006 oz Body Mass Index (BMI) 27.8 Intake & Output: Intake and Output for Last 24 Hours 03/10/21 03/11/21 03/12/21 23:59 23:59 23:59 Intake Total 1600.42 / 2350.42 1025 / 1025 Balance 1600.42 / 2350.42 1025 / 1025 Lab / Micro Data Result Diagrams: 03/10/21 13:00 03/10/21 13:00 Labs: Laboratory Results - last 24 hr 03/11/21 11:29: POC Glucose 193 H 03/11/21 16:48: POC Glucose 146 H 03/11/21 22:24: POC Glucose 156 H Micro: Microbiology 03/10/21 12:50 Nasal Secretion SARS-CoV-2 Antigen (Rapid) - Final Physical Exam Narrative Physical Examination: General: Awake, alert, oriented x 3 and cooperative, laying in the PCU bed, fatigued, improved withdrawal sxs from day prior. Skin: Normal color, normal turgor, no icterus, no cyanosis. HEENT: AT/NC, EOMI, notable BL evident conjunctivitis with yellow discharge and injected sclera, PERRLA, MMM. Lungs: Mildly diminished, greater bases, appropriate effort, no rales, ronchi or wheezing. Heart: Regular rate and rhythm; no gallop, rub audible. Abdomen: Soft, NTTP, ND, normalized BS. Extremities: No cyanosis, clubbing, or edema. Neurological: Patient awake, alert, oriented as noted, cognitive function intact; pupils equally reactive to light and accommodation w/ findings as noted in HEENT, cranial nerves grossly normal, moving all 4 extremities, no focal deficits, strength improved, near preserved, mild tremors but improving. Psychiatric: Affect appears fatigued, no acute evidence of depressive or anxiety feelings. Assessment & Plan Assessment/Plan (1) Acute hyperactive alcohol withdrawal delirium: PLAN: The patient is a 45 y/o M w/ PMHx: HTN, IBS, Tobacco use, Chronic back pain with sciatica with chronic paresthesias w/ chronic opiate abuse concurrently w/ heroin 1 gm daily snorted/smoked, currently homeless with ongoing Chronic EtOH abuse reporting at least 3-4 tall boys daily as well as fireball shots who presents to the [facility] on 03/10/21 secondary to acute EtOH and opiate withdrawal. 1. Acute EtOH Withdrawal: Patient admitted to medical surgical floor, routine labs obtained in the ED upon presentation, given interest in sobriety, initiated and continued on protocol with taper course of Phenobarbital, scheduled gabapentin for seizure prophylaxis, as needed Catapres, Bentyl, Vistaril, IV fluids, IV antiemetics, Tylenol as needed for pain. Planned transition Monday to [address] [place] [address] treatment [facility] given #2, #3 needs also. 2. Hyperglycemia w/ New Onset Diabetes mellitus type II: Patient admission glucose 185, HgbA1c 7.1%, maintained on ADA diet, add accu checks with ISS, consult nutrition for education and teaching. 3. Hypertension: Patient with elevated blood pressures throughout his stay, suspect likely underlying hypertension as no alteration with improvement of his withdrawal symptoms, given new onset diabetes started on low-dose lisinopril, as needed IV hydralazine if necessary. 4. Acute bilateral conjunctivitis: Will initiate erythromycin ointment with plan duration 5 days. 5. Polysubstance Abuse, denied IV drug abuse but chronic opiate abuse: Patient notes last opiate primarily heroin use 4 days prior, denies any withdrawal symptoms, will defer at this time acute treatment. Patient chronically also uses methamphetamines. Given significant polysubstance abuse although denies IV drug abuse will obtain HIV and hepatitis panel to be cautious. Case management consulted for substance abuse. 6. Tobacco Abuse: Encouraged cessation, inpatient consultation per RT, NR if desired. 7. Chronic back pain with radiculopathy and sciatica: We will continue Neurontin, prior imaging with noted 07/2018 old compression L1, stable mild compression T12 and depressed endplate, minimal retrolisthesis L5-S1, posterior annular bulge L 4-5 with impressing upon thecal sac. Advised patient to follow-up with spinal surgeon at discharge and outpatient. 8. GERD: We will maintain on PPI. 9. DVT prophylaxis: Low risk, encourage ambulation. Charges/Coding Visit Charges Inpatient E&M: 90758 Subs Hosp L2
[2021-03-12 06:56] LABS: Bedside Glucose 158 mg/dL (70-110)
[2021-03-12] MEDS: Folic Acid 1 MG Tablet PO (10:37)
[2021-03-12] MEDS: Potassium Chloride Oral Tablet 20 MEQ 40 MEQ PO (10:37)
[2021-03-12] MEDS: Thiamine Hydrochloride 100 MG Tablet PO (10:38)
[2021-03-12] MEDS: Pantoprazole Sodium 40 MG Tablet PO (10:38)
[2021-03-12] MEDS: Lisinopril 10 MG Tablet PO (10:40)
--- NOTE | 2021-03-12 10:54 | ADDICTION ---
This advertising copy writer met with PT to conduct ASAM, MSE, AUDIT, DUDIT assessments and to plan for d/c. PT A+Ox4 and participated actively. All assessments completed, faxed to [facility] and placed in PT's chart. PT plans to f/u with [facility] for residential and follow-up counseling services. PT did not indicate a need for transportation post d/c from [facility].
[2021-03-12] MEDS: Erythromycin Base 1 OPTH.TUBE 1 APPLIC EACH EYE ×4 (11:57→22:34)
[2021-03-12 12:40] LABS: Bedside Glucose 131 mg/dL (70-110)
--- NOTE | 2021-03-12 15:27 | CASEMGMT ---
Plan is for patient to stay through weekend and get directly admitted to residential with [facility]. Corrie Pack RASCHEL KNITTING MACHINE OPERATOR [place]
[2021-03-12 17:00] LABS: Bedside Glucose 175 mg/dL (70-110)
[2021-03-12 22:40] LABS: Bedside Glucose 180 mg/dL (70-110)
[2021-03-13 04:20] VITALS: BP 146/100; PULSE 95; RESP 16; TEMP 36.7; O2SAT 97
[2021-03-13] MEDS: Phenobarbital 32.4 MG Tablet PO ×4 (04:21→22:51)
[2021-03-13] MEDS: hydrOXYzine PAM 25 MG Capsule 50 MG PO (04:23)
--- NOTE | 2021-03-13 06:31 | PCM.PN.HOSP ---
Subjective Subjective Patient with no acute events overnight per self and per nursing report except for episodes of mild anxiety and restless legs which improved with regimen.patient does report that bilateral eye discharge has significantly improved as well as eye itching. Red eye is still significantly injected but otherwise improved. Discussed plan of care including transition to residential facility on Monday to which the patient is amenable. Patient denies fevers, chills, nausea, emesis, abdominal pain, chest pain or dyspnea. Objective Data Objective Data Vital Signs: Vital Signs Temp Pulse Resp BP Pulse Ox 98.1 F 95 16 146/100 H 97 03/13/21 04:20 03/13/21 04:20 03/13/21 04:20 03/13/21 04:20 03/13/21 04:20 Oxygen Delivery Method Room Air Weight: 205 lb 4.006 oz Body Mass Index (BMI) 27.8 Intake & Output: Intake and Output for Last 24 Hours 03/11/21 03/12/21 03/13/21 23:59 23:59 23:59 Intake Total 1025 / 1025 690 / 930 360 / 360 Balance 1025 / 1025 690 / 930 360 / 360 Lab / Micro Data Result Diagrams: 03/10/21 13:00 03/10/21 13:00 Labs: Laboratory Results - last 24 hr 03/12/21 06:44: POC Glucose 158 H 03/12/21 11:57: POC Glucose 131 H 03/12/21 16:47: POC Glucose 175 H 03/12/21 22:31: POC Glucose 180 H Micro: Microbiology 03/10/21 12:50 Nasal Secretion SARS-CoV-2 Antigen (Rapid) - Final Physical Exam Narrative Physical Examination: General: Awake, alert, oriented x 3 and cooperative, laying in the PCU bed, less fatigued, more interactive. Skin: Normal color, normal turgor, no icterus, no cyanosis. HEENT: AT/NC, EOMI, bilateral conjunctivitis with lessened discharge, evidence of ointment in place, still right eye with injected sclera unchanged, PERRLA, MMM. Lungs: Mildly diminished, greater bases, appropriate effort, no rales, ronchi or wheezing. Heart: Regular rate and rhythm; no gallop, rub audible. Abdomen: Soft, NTTP, ND, normalized BS. Extremities: No cyanosis, clubbing, or edema. Neurological: Patient awake, alert, oriented as noted, cognitive function intact; pupils equally reactive to light and accommodation w/ findings as noted in HEENT, cranial nerves grossly normal, moving all 4 extremities, no focal deficits, strength improved, near preserved. Psychiatric: Affect appears less fatigued, no acute evidence of depressive or anxiety feelings. Assessment & Plan Assessment/Plan (1) Acute hyperactive alcohol withdrawal delirium: PLAN: The patient is a 45 y/o M w/ PMHx: HTN, IBS, Tobacco use, Chronic back pain with sciatica with chronic paresthesias w/ chronic opiate abuse concurrently w/ heroin 1 gm daily snorted/smoked, currently homeless with ongoing Chronic EtOH abuse reporting at least 3-4 tall boys daily as well as fireball shots who presents to the [facility] on 03/10/21 secondary to acute EtOH and opiate withdrawal. 1. Acute EtOH Withdrawal: Patient admitted to medical surgical floor, routine labs obtained in the ED upon presentation, given interest in sobriety, initiated and continued on protocol with taper course of Phenobarbital, scheduled gabapentin for seizure prophylaxis, as needed Catapres, Bentyl, Vistaril, IV fluids, IV antiemetics, Tylenol as needed for pain. Planned transition Monday to [address] [place] [address] treatment facility given #2, #3 needs also. 2. Hyperglycemia w/ New Onset Diabetes mellitus type II: Patient admission glucose 185, HgbA1c 7.1%, maintained on ADA diet, accu checks with ISS, consultation with nutrition for education and teaching. 3. Hypertension: Patient with elevated blood pressures throughout his stay, suspected likely underlying hypertension as no alteration with improvement of his withdrawal symptoms, given new onset diabetes started on low-dose lisinopril with BP improvement, as needed IV hydralazine if necessary. 4. Acute bilateral conjunctivitis: 03/12/2020 1 AM initiated on erythromycin ointment with plan duration 5 days, improvement 03/13/2021 evaluation. 5. Polysubstance Abuse, denied IV drug abuse but chronic opiate abuse: Patient notes last opiate primarily heroin use 4 days prior, denies any withdrawal symptoms, will defer at this time acute treatment. Patient chronically also uses methamphetamines. Given significant polysubstance abuse although denies IV drug abuse will obtain HIV and hepatitis panel to be cautious. Case management consulted for substance abuse. 6. Tobacco Abuse: Encouraged cessation, inpatient consultation per RT, NR if desired. 7. Chronic back pain with radiculopathy and sciatica: We will continue Neurontin, prior imaging with noted 07/2018 old compression L1, stable mild compression T12 and depressed endplate, minimal retrolisthesis L5-S1, posterior annular bulge L 4-5 with impressing upon thecal sac. Advised patient to follow-up with spinal surgeon at discharge and outpatient. 8. GERD: We will maintain on PPI. 9. DVT prophylaxis: Low risk, encourage ambulation. Charges/Coding Visit Charges Inpatient E&M: 28369 Subs Hosp L2
[2021-03-13] MEDS: Insulin Lispro 100 UNIT/ML INSULN.PEN SC ×2 (06:44→11:48)
[2021-03-13 07:05] LABS: Bedside Glucose 162 mg/dL (70-110)
[2021-03-13] MEDS: Thiamine Hydrochloride 100 MG Tablet PO (08:34)
[2021-03-13] MEDS: Pantoprazole Sodium 40 MG Tablet PO (08:34)
[2021-03-13] MEDS: Folic Acid 1 MG Tablet PO (08:34)
[2021-03-13] MEDS: Erythromycin Base 1 OPTH.TUBE 1 APPLIC EACH EYE ×4 (08:34→22:51)
[2021-03-13 10:07] VITALS: BP 123/82; PULSE 104; RESP 20; TEMP 37.2; O2SAT 95
[2021-03-13] MEDS: Lisinopril 10 MG Tablet PO (10:08)
[2021-03-13 12:11] LABS: Bedside Glucose 171 mg/dL (70-110)
[2021-03-13 14:11] VITALS: BP 115/79; PULSE 93; RESP 14; TEMP 37.2; O2SAT 95
[2021-03-13 17:14] VITALS: BP 112/80; PULSE 89; RESP 16; TEMP 37.3; O2SAT 96
[2021-03-13 17:30] LABS: Bedside Glucose 135 mg/dL (70-110)
[2021-03-13 23:00] VITALS: BP 108/78; PULSE 82; RESP 16; TEMP 36.9; O2SAT 97
[2021-03-13 23:06] LABS: Bedside Glucose 145 mg/dL (70-110)
[2021-03-14] MEDS: Phenobarbital 32.4 MG Tablet PO ×2 (04:56→11:06)
[2021-03-14 04:59] VITALS: BP 111/82; PULSE 96; RESP 16; TEMP 36.9; O2SAT 96
[2021-03-14] MEDS: Insulin Lispro 100 UNIT/ML INSULN.PEN SC ×3 (06:36→22:02)
[2021-03-14 06:46] LABS: Bedside Glucose 194 mg/dL (70-110)
[2021-03-14 10:50] VITALS: BP 112/78; PULSE 103; RESP 16; TEMP 36.3; O2SAT 97
[2021-03-14] MEDS: Lisinopril 10 MG Tablet PO (10:53)
[2021-03-14] MEDS: Folic Acid 1 MG Tablet PO (10:54)
[2021-03-14] MEDS: Thiamine Hydrochloride 100 MG Tablet PO (10:54)
[2021-03-14] MEDS: Pantoprazole Sodium 40 MG Tablet PO (10:54)
[2021-03-14] MEDS: Erythromycin Base 1 OPTH.TUBE 1 APPLIC EACH EYE ×4 (10:55→22:02)
[2021-03-14 11:40] LABS: Bedside Glucose 234 mg/dL (70-110)
--- NOTE | 2021-03-14 11:44 | PN.HOSP_ITS ---
Subjective Subjective Patient with no acute events overnight per nurse and patient report. Patient states that eye discharge has significantly improved and no further itching. Patient also has had significant blood pressure improvement with regimen initiation. Patient remains amenable to transition to residential facility on Monday and understands that he will be discharged on medications for high blood pressure as well as diabetes. Patient denies any further withdrawal symptoms. Patient denies fevers, chills, nausea, emesis, abdominal pain, chest pain or dyspnea. Objective Data Objective Data Vital Signs: Vital Signs Temp Pulse Resp BP Pulse Ox 97.4 F L 103 H 16 112/78 97 03/14/21 10:50 03/14/21 10:50 03/14/21 10:50 03/14/21 10:50 03/14/21 10:50 Oxygen Delivery Method Room Air Weight: 205 lb 4.006 oz Body Mass Index (BMI) 27.8 Intake & Output: Intake and Output for Last 24 Hours 03/12/21 03/13/21 03/14/21 23:59 23:59 23:59 Intake Total 690 / 930 940 / 940 Balance 690 / 930 940 / 940 Lab / Micro Data Result Diagrams: 03/10/21 13:00 03/10/21 13:00 Labs: Laboratory Results - last 24 hr 03/13/21 11:44: POC Glucose 171 H 03/13/21 17:05: POC Glucose 135 H 03/13/21 23:01: POC Glucose 145 H 03/14/21 06:33: POC Glucose 194 H 03/14/21 11:02: POC Glucose 234 H Micro: Microbiology 03/10/21 12:50 Nasal Secretion SARS-CoV-2 Antigen (Rapid) - Final Physical Exam Narrative Physical Examination: General: Awake, alert, oriented x 3 and cooperative, laying in the PCU bed, denies any complaints at this time, remains unkempt and has done very little to improve his appearance or smell. Skin: Normal color, normal turgor, no icterus, no cyanosis. HEENT: AT/NC, EOMI, conjunctivitis has resolved, still some right eye scleral injection, evidence of ointment in place, PERRLA, MMM. Lungs: Mildly diminished, greater bases, appropriate effort, no rales, ronchi or wheezing. Heart: Regular rate and rhythm; no gallop, rub audible. Abdomen: Soft, NTTP, ND, normalized BS. Extremities: No cyanosis, clubbing, or edema. Neurological: Patient awake, alert, oriented as noted, cognitive function intact; pupils equally reactive to light and accommodation w/ findings as noted in HEENT, cranial nerves grossly normal, moving all 4 extremities, no focal deficits, strength preserved. Psychiatric: Affect appears normal, no acute evidence of depressive or anxiety feelings. Assessment & Plan Assessment/Plan (1) Acute hyperactive alcohol withdrawal delirium: PLAN: The patient is a 45 y/o M w/ PMHx: HTN, IBS, Tobacco use, Chronic back pain with sciatica with chronic paresthesias w/ chronic opiate abuse concurrently w/ heroin 1 gm daily snorted/smoked, currently homeless with ongoing Chronic EtOH abuse reporting at least 3-4 tall boys daily as well as fireball shots who presents to the [facility] on 03/10/21 secondary to acute EtOH and opiate withdrawal. 1. Acute EtOH Withdrawal: Patient admitted to medical surgical floor, routine labs obtained in the ED upon presentation, given interest in sobriety, initiated and continued on protocol with taper course of Phenobarbital, scheduled gabapentin for seizure prophylaxis, as needed Catapres, Bentyl, Vistaril, IV fluids, IV antiemetics, Tylenol as needed for pain. Planned transition Monday to [facility] residential treatment facility given #2, #3 needs also. 2. Hyperglycemia w/ New Onset Diabetes mellitus type II: Patient admission glucose 185, HgbA1c 7.1%, maintained on ADA diet, accu checks with ISS, consultation with nutrition for education and teaching. Upon discharge patient will be transitioned to Metformin to which she is amenable. 3. Hypertension, new onset: Patient with elevated blood pressures throughout his stay, suspected likely underlying hypertension as no alteration with improvement of his withdrawal symptoms, given new onset diabetes started on low- dose lisinopril with BP improvement which will be continued upon transition to residential facility. 4. Acute bilateral conjunctivitis: 03/12/2020 1 AM initiated on erythromycin ointment with plan duration 5 days, improvement 03/13/2021 evaluation. 5. Polysubstance Abuse, denied IV drug abuse but chronic opiate abuse: Patient notes last opiate primarily heroin use 4 days prior, denies any withdrawal symptoms, will defer at this time acute treatment. Patient chronically also uses methamphetamines. Given significant polysubstance abuse although denies IV drug abuse will obtain HIV and hepatitis panel to be cautious. Case management consulted for substance abuse. 6. Tobacco Abuse: Encouraged cessation, inpatient consultation per RT, NR if desired. 7. Chronic back pain with radiculopathy and sciatica: We will continue Neurontin, prior imaging with noted 07/2018 old compression L1, stable mild compression T12 and depressed endplate, minimal retrolisthesis L5-S1, posterior annular bulge L 4-5 with impressing upon thecal sac. Advised patient to follow- up with spinal surgeon at discharge and outpatient. 8. GERD: We will maintain on PPI. 9. DVT prophylaxis: Low risk, encourage ambulation. Charges/Coding Visit Charges Inpatient E&M: 88922 Subs Hosp L2
[2021-03-14 14:36] VITALS: BP 114/67; PULSE 95; RESP 16; TEMP 36.6; O2SAT 99
[2021-03-14 16:58] VITALS: BP 148/96; PULSE 100; RESP 18; TEMP 36.6; O2SAT 97
[2021-03-14] MEDS: hydrOXYzine PAM 25 MG Capsule 50 MG PO ×2 (17:05→22:03)
[2021-03-14 17:16] LABS: Bedside Glucose 124 mg/dL (70-110)
[2021-03-14 22:00] VITALS: BP 97/67; PULSE 95; RESP 18; TEMP 37.2; O2SAT 95
[2021-03-14 22:10] LABS: Bedside Glucose 162 mg/dL (70-110)
[2021-03-15 04:08] VITALS: BP 118/86; PULSE 87; RESP 18; TEMP 36.9; O2SAT 96
[2021-03-15] MEDS: Insulin Lispro 100 UNIT/ML INSULN.PEN SC (06:22)
[2021-03-15 06:31] LABS: Bedside Glucose 176 mg/dL (70-110)
[2021-03-15 07:45] VITALS: BP 121/88; PULSE 95; RESP 16; TEMP 36.6; O2SAT 95
[2021-03-15] MEDS: Folic Acid 1 MG Tablet PO (07:53)
[2021-03-15] MEDS: Thiamine Hydrochloride 100 MG Tablet PO (07:53)
--- NOTE | 2021-03-15 08:38 | PCM.DC.SUM ---
Providers Date of Admission: 03/10/21 Primary Care Physician: No Primary Care Phys Reason For Visit: ACUTE ALCOHOL WITHDRAW SYNDROME Diagnosis Discharge Diagnosis (1) Acute hyperactive alcohol withdrawal delirium: Status: Acute Code(s): F10.231 - Alcohol dependence with withdrawal delirium Medications at Discharge Home Medications erythromycin 1 applic EACH EYE 4X/DAY 2 Days #1 g 03/15/21 folic acid 1 mg PO DAILY 30 Days #30 tab 03/15/21 lisinopril 10 mg PO DAILY 30 Days #30 tab 03/15/21 metformin 500 mg PO BID 30 Days #60 tab 03/15/21 pantoprazole 40 mg PO DAILY 30 Days #30 tab 03/15/21 thiamine HCl (vitamin B1) [Vitamin B-1] 100 mg PO DAILYCM 30 Days #30 tab 03/15/21 Hospital Course Operations None Procedures EKG Summary of Care Provided Minutes Spent on Discharge: 35 Hospital Course: DISCHARGE NOTE: Discharge Diagnoses: 1. Acute EtOH Withdrawal 2. Hyperglycemia w/ New Onset Diabetes mellitus type II 3. Hypertension, new onset 4. Acute bilateral conjunctivitis 5. Polysubstance Abuse, denied IV drug abuse but chronic opiate abuse 6. Tobacco Abuse 7. Chronic back pain with radiculopathy and sciatica 8. GERD Discharge Summary: The patient is a 45 y/o M w/ PMHx: HTN, IBS, Tobacco use, Chronic back pain with sciatica with chronic paresthesias w/ chronic opiate abuse concurrently w/ heroin 1 gm daily snorted/smoked, currently homeless with ongoing Chronic EtOH abuse reporting at least 3-4 tall boys daily as well as fireball shots who presented to the [facility] on 03/10/21 secondary to acute EtOH and opiate withdrawal. Patient admitted to medical surgical floor, routine labs obtained in the ED upon presentation, given interest in sobriety, initiated and continued on protocol with taper course of Phenobarbital, scheduled gabapentin for seizure prophylaxis, as needed agents. Patient was evaluated by 180 and set up for residential treatment facility on 03/15/2021 upon discharge. Patient admission glucose 185, HgbA1c 7.1%, therefore maintained on ADA diet, started on accu checks with ISS, with consultation with nutrition for education and teaching. Upon discharge patient transitioned to Metformin with glucometer prescription with recommendation for blood sugar log with at least fasting and largest postprandial to bring with him to his PCP visit to ascertain best course of treatment. Information also on ADA diet given. Patient with elevated blood pressures throughout his stay, suspected likely underlying hypertension as no alteration with improvement of his withdrawal symptoms, given new onset diabetes started on low-dose lisinopril with BP improvement which was continued upon transition to residential facility. Patient with onset 03/12/2021 noted bilateral eye conjunctivitis, initiated on erythromycin which patient was discharged on with stop date recommendations made. Discharge Time: > 35 Minutes DAY OF DISCHARGE PROGRESS NOTE: Subjective: Patient without acute event overnight per self and nursing report. Patient notes withdrawal symptoms have significantly resolved. Did discuss importance of continued treatment for his newly diagnosed diabetes, hypertension and recent conjunctivitis to which patient is amenable. Patient denies fever, chills, nausea, emesis, abdominal pain, chest pain or dyspnea. Patient agreeable to discharge to residential treatment facility. Upon discharge recommended patient follow-up and establish with primary care physician especially given new diagnoses and requested that patient assigned PCP prior to his discharge to residential facility. Objective: T 97.8, heart rate 95, BP 121/88, respiratory rate 16, 95% room air. Physical Examination: General: Awake, alert, oriented x 3 and cooperative, laying in the PCU bed, no acute distress or any complaints Skin: Normal color, normal turgor, no icterus, no cyanosis. HEENT: AT/NC, EOMI, conjunctivitis resolved, improved right eye scleral injection, evidence of ointment in place, PERRLA, MMM. Lungs: Mildly diminished, greater bases, appropriate effort, no rales, ronchi or wheezing. Heart: Regular rate and rhythm; no gallop, rub audible. Abdomen: Soft, NTTP, ND, normalized BS. Extremities: No cyanosis, clubbing, or edema. Neurological: Patient awake, alert, oriented as noted, cognitive function intact; pupils equally reactive to light and accommodation w/ findings as noted in HEENT, cranial nerves grossly normal, moving all 4 extremities, no focal deficits, strength preserved. Psychiatric: Affect appears normal, no acute evidence of depressive or anxiety feelings. Assessment and Plan: Please see hospital summary above. Weight / BMI Weight Weight: 205 lb 4.006 oz Body Mass Index (BMI) 27.8 ABG / Lab / Microbiology Data Result Diagrams: 03/10/21 13:00 03/10/21 13:00 Laboratory: Laboratory Results - last 24 hr 03/14/21 11:02: POC Glucose 234 H 03/14/21 17:01: POC Glucose 124 H 03/14/21 21:58: POC Glucose 162 H 03/15/21 06:21: POC Glucose 176 H Microbiology: Microbiology 03/10/21 12:50 Nasal Secretion SARS-CoV-2 Antigen (Rapid) - Final D/C Instructions Discharge Diet: 1800 Calorie Control Diet Call your doctor if you observe: Fever of 101 or Higher, Numbness or Tingling, Inability to urinate, Shortness of breath, Dizziness, Fainting spells, Swelling in the ankles, Chest pain and Increased palpitations (irregular heartbeat) Meaningful Use Info Meaningful Use Diagnoses (Choose all that apply): None applicable Discharge Plan Admission Admit Date/Time: 03/10/21 12:27 Primary Reason for Your Visit: Acute EtOH Withdrawal, New onset Diabetes mellitus type II, New HTN Attending Provider: Beata Marley Primary Care Provider: Care Physician,No Primary Instructions Patient Instructions: Taking GREGORY Inhibitors, How to Check Your Blood Sugar, What Is High Blood Pressure?, Diabetes Learn Serve Portion Size, Diabetes: Meal Planning, Understanding Type 2 Diabetes, ED Diabetes- Overview Additional Instructions / Restrictions: DISCHARGE INSTRUCTIONS: 1. Hyperglycemia w/ New Onset Diabetes mellitus type II: During the admission your blood sugars were noted to be elevated. Your HgbA1c was elevated 7.1% consistent with new onset diabetes. Please continue your newly initiated metformin regimen 500 mg twice daily. If you have notable GI side effects this can be decreased to 500 mg once daily and more slowly titrated upward pending blood sugar levels and response. We recommend continuing the ADA 1800 diet and also checking your AM fasting and largest meal post-prandial level blood sugars and keeping a log to bring with you to your primary care follow-up visit. 2. Hypertension, new onset: You had evidence of elevated blood pressure was persisted. You were started on lisinopril with great effect. Please have follow-up basic metabolic panel outpatient with your primary care physician at follow-up. 3. Acute bilateral conjunctivitis: Please continue bilateral eye ointment administration with stop date 03/16/21 after your evening dose unless you still have discharge then please continue for an additional 2 days. 4. GERD: We started you on protonix for your persistent reflux symptoms and this was continued on discharge. Discharge Orders/Prescriptions Prescriptions: New erythromycin 5 mg/gram (0.5 %) Ointment 1 applic EACH EYE 4X/DAY 2 Days Qty: 1 RF: 0 thiamine HCl (vitamin B1) [Vitamin B-1] 100 mg Tablet 100 mg PO DAILYCM 30 Days Qty: 30 RF: 0 lisinopril 10 mg Tablet 10 mg PO DAILY 30 Days Qty: 30 RF: 0 metformin 500 mg tablet 500 mg PO BID 30 Days Qty: 60 RF: 0 folic acid 1 mg tablet 1 mg PO DAILY 30 Days Qty: 30 RF: 0 pantoprazole 40 mg Tablet,Delayed Release (Dr/Ec) 40 mg PO DAILY 30 Days Qty: 30 RF: 0 Discontinued cyclobenzaprine 10 MG tablet 10 mg PO QHS PRN PRN (Reason: Muscle Spasm) Qty: 10 RF: 0 naproxen 500 MG tablet 500 mg PO BID PRN Qty: 20 RF: 0 Other Ambulatory Orders: Glucometer (Routine) Location: None Selected Ordered By: Dr. Beata Marley Referrals / Follow Up: Care Physician,No Primary [Primary Care Provider] - (PLEASE FOLLOW-UP AND ESTABLISH WITH PRIMARY CARE WITHIN 1-2 WEEKS.) Disposition Disposition (needs filled in before D/C Order can be placed): Transfer to Another Type HCF Charges/Coding Visit Charges Inpatient E&M: 88502 Disch Hosp
[2021-03-15] MEDS: Erythromycin Base 1 OPTH.TUBE 1 APPLIC EACH EYE (10:51)
[2021-03-15] MEDS: Lisinopril 10 MG Tablet PO (10:51)
[2021-03-15] MEDS: Pantoprazole Sodium 40 MG Tablet PO (10:51)
--- NOTE | 2021-03-15 11:17 | ADDICTION ---
This worker met with PT to conduct screening for residential treatment at [facility]. PT was approved and [facility] will transport PT to [facility] today at 11:30am.
== END 2021-03-15 11:53 | disposition other institution (70) | DRG 773 ==
LOC: ED 12:37 → PCU 13:02
PROVIDERS: Admitting Provider Internal Medicine; Emergency Provider Emergency Medicine; Visit Provider Family Medicine
DX: F10.231 Alcohol dependence with withdrawal delirium (principal); E86.0 Dehydration; E11.65 Type 2 diabetes mellitus with hyperglycemia; G89.29 Other chronic pain; H10.33 Unspecified acute conjunctivitis, bilateral; F15.20 Other stimulant dependence, uncomplicated; F11.20 Opioid dependence, uncomplicated; E87.6 Hypokalemia; I10 Essential (primary) hypertension; K21.9 Gastro-esophageal reflux disease without esophagitis; F17.210 Nicotine dependence, cigarettes, uncomplicated; M54.10 Radiculopathy, site unspecified; M54.30 Sciatica, unspecified side; G25.81 Restless legs syndrome; Z59.00 Homelessness unspecified; K58.9 Irritable bowel syndrome, unspecified; Y90.9 Presence of alcohol in blood, level not specified
CPT/HCPCS: 80053; 80307; 82077; 82962; 83036; 83735; 84100; 85025; 86703; 86704; 86705; 86706; 86707; 86803; 87340; 87350; 87426; 97802; 99283; 99406; J7030; J7120; 90686

== ENCOUNTER 2021-03-17 12:27 | Emergency (ER) | payer MEDICAID, SELFPAY ==
[2021-03-17 12:28] VITALS: BP 159/104; PULSE 105; RESP 16; TEMP 36.8; O2SAT 98; BMI 28.1
[2021-03-17 13:20] LABS: Bedside Glucose 106 mg/dL (70-110)
--- NOTE | 2021-03-17 13:42 | ED.VIS.LOWEX ---
HPI History of Present Illness Chief Complaint: Lower Extremity Injury Informant: patient Narrative Narrative: Patient comes in for bilateral foot pain. Most of this is on the left a little bit more than the right. It is more in the great toes than the other toes. Its been going off and on since June. He has been told it is due to neuropathy. He has no trauma. He has no fevers chills. No numbness or weakness. Patient was recently admitted for alcohol detox. He does drink regularly. He was found to be a new onset diabetic at this time and is on Metformin. He has been trying to watch his diet. He has not been drinking alcohol. He states now that he is sober he is feeling the pain of his feet more. It is a little bit worse at night and occasionally with weightbearing. I do note a little darkening of the skin of his great toe with the tip but it has been that way for several months unchanged. PFSH PFSH Home Medications erythromycin 1 applic EACH EYE 4X/DAY 2 Days #1 g 03/15/21 [Rx Last Taken Unknown] metformin 500 mg PO BID 30 Days #60 tab 03/15/21 [Rx Last Taken Unknown] gabapentin 100 mg PO TID #90 cap 03/17/21 [Rx Last Taken Unknown] Allergy/AdvReac Type Severity Reaction Status Date / Time No Known Allergies Allergy Verified 03/10/21 12:03 Family History Aunt Crohns disease Social History Smoking Status: Current every day smoker tobacco type: cigarettes ROS ROS ED Constitutional Constitutional ED: Denies chills or fever(s) Eyes Eyes: Denies blurry vision ENT ENT ED: Denies rhinorrhea Cardiovascular Cardiovascular: Denies palpitations Respiratory/Chest Respiratory/Chest: Denies dyspnea Gastrointestinal Gastrointestinal: Denies abdominal pain, diarrhea, nausea or vomiting Genitourinary Genitourinary ED: Denies urinary frequency Musculoskeletal Musculoskeletal: Reports other Details: See history of present illness Integumentary Denies rash Neurologic Neurologic: Reports paresthesias; Denies headache(s) or weakness Psychiatric Psychiatric: Denies depression Endocrine Endocrinology: Denies polydipsia or polyuria Hematologic/Lymphatic Hematologic/Lymphatic: Denies easy bleeding or easy bruising Allergic/Immunologic Allergic/Immunologic ED: Denies urticaria EXAM Physical Exam Const Vital Signs: 03/17/21 12:28 Temperature 98.2 F Temperature Source Temporal Pulse Rate 105 H Respiratory Rate 16 Blood Pressure 159/104 H Blood Pressure Mean 122 Pulse Ox 98 Oxygen Delivery Method Room Air Positive well nourished and well developed General Appearance ED: well developed and NAD HEENT Reports moist mucous membranes normocephalic and atraumatic Resp normal respiratory effort and clear to auscultation bilaterally Cardio regular rate, regular rhythm and no murmurs GI non-tender Palpation: soft Back/Spine no CVA tenderness Extremity Extremity Narrative: Both feet have a fair amount of callus formation. The left great toe has a little darkened in color of the callus. However, there is no cyanosis of the toe. He has bounding posterior tibial and dorsalis pedis pulses on both feet. There is no sign of erythema or warmth or infection. First MTP is not red or swollen. There are no swelling changes anywhere. Neuro oriented x3 Sensorium / Orientation: alert Psych mental status grossly normal Skin Skin Narrative: See above description. Rashes: no rashes MDM MDM MDM Narrative Medical decision making narrative: GGT was checked. It is at 106 showing he is actually quite well controlled on Metformin 500 twice a day. I think this patient does likely have diabetic neuropathy. He has had symptoms for a while with just the recent diagnosis of hyperglycemia and diabetes. There is no sign of infection or gout or poor blood flow. I will start him on gabapentin. I would like to control his symptoms because I think he is at higher risk of drinking again if we do not. It is very important he follows up with primary physician as his dosage of gabapentin will likely need adjustment. Lab Data Attestation: I reviewed the patient's lab results. Labs: Laboratory Results - last 24 hr 03/17/21 13:16 POC Glucose 106 Discharge Plan Triage Chief Complaint: Lower Extremity Injury ED Provider: Keanu Argueta Dx/Rx/DC Orders Clinical Impression: Diabetic neuropathy Instructions: Diabetic Neuropathy Prescriptions: New gabapentin 100 mg capsule 100 mg PO TID Qty: 90 RF: 0 No Action erythromycin 5 mg/gram (0.5 %) Ointment 1 applic EACH EYE 4X/DAY 2 Days Qty: 1 RF: 0 metformin 500 mg tablet 500 mg PO BID 30 Days Qty: 60 RF: 0 Primary Care Provider: Care Physician,No Primary Referrals: Zamzam Wu MD [STAFF PHYSICIAN] - As soon as possible Care Physician,No Primary [Primary Care Provider] - Disposition Disposition: Home, Self Care
== END 2021-03-17 14:04 | disposition home or self-care (01) ==
LOC: ED 13:58
PROVIDERS: Emergency Provider Emergency Medicine
DX: E11.40 Type 2 diabetes mellitus with diabetic neuropathy, unspecified (principal); F17.210 Nicotine dependence, cigarettes, uncomplicated; Z79.84 Long term (current) use of oral hypoglycemic drugs; Z79.899 Other long term (current) drug therapy
CPT/HCPCS: 82962; 99282

== ENCOUNTER → 2021-03-23 09:13 | Outpatient (CLI) | payer MEDICAID, SELFPAY ==
[2021-03-23 12:38] LABS: Absolute Lymphocyte Count 1.96 X10^3/uL (0.83-4.51); Absolute Neutrophil Count 5.5 X10^3/uL (2.0-7.7); Basophil# 0.11 X10^3/uL; Basophil% 1.3 % (0-1); Eosinophil# 0.17 X10^3/uL; Hemoglobin 14.1 g/dL (13.0-16.5); Lymphocyte # 1.96 X10^3/ul (0.83-4.51); Lymphocyte % 22.7 % (19-41); Mean Corpuscular Hgb 29.5 pg (27.0-32.0); Mean Corpuscular Volume 92.1 fL (80-94); Mean Platelet Vol. 9.3 fl (6.2-12.0); Monocyte# 0.83 X10^3/uL; Monocyte% 9.6 % (0-10); NRBC Flagged by Analyzer 0 % (0-5); Neutrophil # 5.53 X10^3/uL (2.7-7.7); Neutrophil % 63.9 % (47-70); Platelet Count 335 K/mm3 (150-450); RBC Distribution Width CV 12.8 % (11.6-14.6); RBC Distribution Width SD 43.4 fl (35.1-43.9); Red Blood Count 4.78 M/mm3 (4.6-6.2); White Blood Count 8.6 K/mm3 (4.4-11.0)
[2021-03-23 13:04] LABS: Vitamin B12 263 pg/mL (211-911); Vitamin D,25 Hydroxy 22.6 ng/mL
[2021-03-23 13:06] LABS: ALB/GLOB Ratio 0.8 RATIO (0.9-2.4); AST(SGOT) 10 U/L (15-37); Alanine Aminotransfer ALT/SGPT 21 U/L (16-61); Albumin, Serum 3.4 g/dL (3.2-5.0); Alkaline Phosphatase 72 U/L (45-117); Anion Gap 9 (5-15); BUN 18 mg/dL (7-18); BUN/Creat Ratio 27.2 RATIO (10-20); Calcium,Total 9.2 mg/dL (8.5-10.1); Chloride 108 mmol/L (98-107); Cholesterol 168 mg/dL (200); Creatinine, Serum 0.66 mg/dL (0.70-1.30); EST Glomerular Filtration Rate 139 mL/min (>60); Est Glom Filt Rate - Afr Amer 168 mL/min (>60); Free T3 2.6 pg/mL (2.18-3.98); Globulin 4.5 g/dL (2.2-4.2); Glucose 181 mg/dL (74-106); High Density Lipoprotein 57 mg/dL; PSA,Total - Annual Screen 0.55 ng/mL (0.00-4.00); Potassium 4.2 mmol/L (3.5-5.1); Protein, Total 7.9 g/dL (6.4-8.2); Sodium Level 138 mmol/L (136-145); T4 Free Direct 0.86 ng/dL (0.76-1.46); Thyroid Stim Hormone (TSH) 1.29 uIU/mL (0.358-3.74); Triglycerides 89 mg/dL; Very Low Density Lipoprotein 18 mg/dL (5-40)
== END ==
PROVIDERS: PCP Internal Medicine; Referring Provider Internal Medicine; Visit Provider Internal Medicine
DX: F10.10 Alcohol abuse, uncomplicated (principal); E11.65 Type 2 diabetes mellitus with hyperglycemia; I10 Essential (primary) hypertension; F17.200 Nicotine dependence, unspecified, uncomplicated; Y90.9 Presence of alcohol in blood, level not specified
CPT/HCPCS: 36415; 80053; 80061; 82306; 82607; 84153; 84439; 84443; 84481; 85025; G0103